=== PATIENT | male | born 1960 | race Caucasian/White ===

== ENCOUNTER 2019-05-10 09:19 | Outpatient (CLI) | payer BC, SELFPAY ==
[2019-05-10 10:35] LABS: Alanine Aminotransferase 32 U/L (16-63); Alkaline Phosphatase 57 U/L (46-116); Anion Gap 11.4 mmol/L (7-16); Aspartate Amino Transferase 24 U/L (15-37); Bilirubin,Total 0.5 mg/dL (0.00-1.00); Blood Urea Nitrogen 18 mg/dL (7-18); Calcium 8.9 mg/dL (8.5-10.1); Carbon Dioxide 29 mmol/L (21-32); Chloride 104 mmol/L (98-108); Cholesterol 149 mg/dL (0-200); Estimated Glomerular Filt Rate > 60; Glucose 102 mg/dL (70-99); HDL Direct 41 mg/dL (40-60); LDL Cholesterol Calculated 86 mg/dL (<130); Osmolality Calculated 291 mOsm/kg (285-295); Potassium 4.4 mmol/L (3.5-5.1); Sodium 140 mmol/L (136-145); Total Protein 7.3 g/dL (6.4-8.2); Triglycerides 109 mg/dL (0-150)
== END 2019-05-10 09:20 | disposition home or self-care (01) ==
LOC: CHSLAB 09:23
PROVIDERS: PCP Internal Medicine; Visit Provider Internal Medicine Cardiovascular Disease
DX: E78.5 Hyperlipidemia, unspecified (principal)
CPT/HCPCS: 36415; 80053; 80061

== ENCOUNTER 2019-06-26 14:39 | Outpatient (CLI) | payer BC, SELFPAY ==
--- NOTE | 2019-06-26 15:11 | ECG_ITS ---
Measurements Intervals [place] Rate: 57 P: 56 TN: 223 QRS: -54 QRSD: 155 T: 101 QT: 425 QTc: 415 Interpretive Statements SINUS BRADYCARDIA WITH FIRST DEGREE AV BLOCK VENTRICULAR PREMATURE COMPLEX LEFT AXIS DEVIATION LEFT BUNDLE BRANCH BLOCK ABNORMAL ECG Electronically Signed On 06-26-2019 16:53:13 CDT by Manuel Roger D.O.
--- NOTE | 2019-06-29 13:44 | WPDHOLTEREM ---
Holter/Event Monitor Holter/Event Monitor Date of procedure: 06/26/19 Procedure Type: 48 hour holter monitor Indications: Palpitations Conclusion: 1. 48 hour holter monitor on 06/26/19. 2. Predominant rhythm is sinus rhythm. HR range 46-108 bpm; average HR 64 bpm. 3. There are 368 premature supraventricular complexes and 7 supraventricular couplets. There is two episodes of atrial tachycardia, fastest at 128 bpm and longest lasting 16 beats. 4. There are 3,423 premature ventricular complexes, 14 ventricular couplets, 47 ventricular bigeminy, and 76 ventricular trigeminy. One idioventricular rhythm on average at 89 bpm lasting 5 beats. No ventricular tachycardia. 5. First degree AV block. Baseline left bundle branch block. No significant pauses greater than 2 seconds. 6. No symptoms available for correlation.
== END 2019-06-26 14:40 | disposition home or self-care (01) ==
PROVIDERS: PCP Internal Medicine; Visit Provider Internal Medicine Cardiovascular Disease
DX: R00.2 Palpitations (principal)
CPT/HCPCS: 93005; 93225; 93226

== ENCOUNTER 2019-08-07 09:44 | Outpatient (CLI) | payer BC, SELFPAY ==
--- NOTE | ~2019-08-07 | CT_ITS ---
EXAMINATION: CTA chest EXAM DATE: 08/07/2019 10:39 INDICATION: Aortic aneurysm without rupture follow-up. TECHNIQUE: Spiral CT of the chest following intravenous injection of 100 mL Omnipaque 350. Axial, co edith and sagittal images were reviewed. Coronal maximum intensity pixel images of chest reviewed. M aximum intensity projection 3-D reconstructions of the aorta were created by the technologist on [employer] workstation. The dose-length product (DLP) for this examination was 471.92 mGy-cm. The exposu re was tailored according to patient size (auto mA exposure control), and iterative reconstruction (A SIR) was used as additional dose reduction technique. Comparison is made to prior examination from . FINDINGS: The aortic root measures 5.3 cm as measured on image 54, unchanged. There is aortic valve r eplacement. The lungs are clear. There are no pleural or pericardial effusions. Tracheobronchial tree is patent. There is no mediastinal, hilar or axillary lymphadenopathy. There is no pneumotho rax. There is cardiomegaly. There is mild coronary arterial calcification, arterial sclerosis. Up per abdomen is unremarkable. There is thoracic spondylosis without osteoblastic or osteolytic lesio ns identified. IMPRESSION: 1. Aortic root, ascending aortic aneurysm unchanged. 2. Cardiomegaly. Reviewed, dictated and finalized at location A.
[2019-08-07 10:31] LABS: Estimated Glomerular Filt Rate > 60
== END 2019-08-07 09:45 | disposition home or self-care (01) ==
PROVIDERS: PCP Internal Medicine; Visit Provider Internal Medicine Cardiovascular Disease
DX: I71.2 Thoracic aortic aneurysm, without rupture (principal); I51.7 Cardiomegaly
CPT/HCPCS: 36415; 71275; Q9967

== ENCOUNTER 2020-04-23 10:51 | Outpatient (CLI) | payer BC, SELFPAY ==
[2020-04-23 11:23] LABS: Hematocrit 37.7 % (40.0-54.0); Hemoglobin 13.1 g/dL (14.0-18.0); Mean Corpuscular HGB Conc 34.7 g/dL (32.0-36.0); Mean Corpuscular Hemoglobin 29.8 pg (27.0-31.0); Mean Corpuscular Volume 85.7 fL (78.0-102.0); Mean Platelet Volume 10.8 fl (8.7-11.0); Platelet Count Result 162 K/mm3 (150-420); Red Cell Distribution Width 13.2 % (11.6-14.4); White Blood Count 3.3 K/mm3 (4.8-10.8)
[2020-04-23 11:24] LABS: Add Urine Microscopic? YES; Appearance Urine Clear (Clear); Bilirubin Urine Negative (Negative); Blood Urine 3+ (Negative); Color Urine Yellow (Yellow); Glucose Urine UA Negative (Negative); Ketones Urine Negative (Negative); Leukocyte Esterase Ur Negative LEU/UL (Negative); Nitrate Urine Negative (Negative); Protein Urine Trace (Negative); Specific Grav Ur 1.025 (1.010-1.020); Urobilinogen Urine 0.2 mg/dL (0.2-1.0); pH Urine 5.5 (5.0-8.0)
[2020-04-23 11:32] LABS: WBC Urine 0-3 /hpf (0-3)
[2020-04-23 11:33] LABS: Bacteria Urine Trace /hpf
[2020-04-23 11:35] LABS: Alanine Aminotransferase 21 U/L (16-63); Albumin Level 3.6 g/dL (3.4-5.0); Alkaline Phosphatase 58 U/L (46-116); Anion Gap 8 mmol/L (8-16); Aspartate Amino Transferase 24 U/L (15-37); Bilirubin,Total 0.6 mg/dL (0.00-1.00); Blood Urea Nitrogen 16 mg/dL (7-18); CRP 5.3 mg/dL (0.0-0.9); Calcium 8.3 mg/dL (8.5-10.1); Carbon Dioxide 26 mmol/L (21-32); Chloride 97 mmol/L (98-108); Estimated Glomerular Filt Rate 52; Glucose 110 mg/dL (70-99); Osmolality Calculated 274 mOsm/kg (285-295); Potassium 4.3 mmol/L (3.5-5.1); Sodium 131 mmol/L (136-145); Total Protein 7.3 g/dL (6.4-8.2)
[2020-04-23 11:43] LABS: SARS-CoV-2 Ag Negative (Negative)
[2020-04-23 11:46] LABS: Band Neutrophils Percent 1 % (0-6); Basophils Absolute Manual 0.06 K/mm3 (0-0.1); Basophils Percent Manual 2 % (0-1); Eosinophils Percent Manual 0 % (1-6); Lymphocytes Absolute Manual 0.66 K/mm3 (1.1-4.5); Lymphocytes Percent Manual 20 % (18-44); Monocytes Absolute Manual 0.52 K/mm3 (0.1-0.90); Monocytes Percent Manual 16 % (3-9); Neutrophils Absolute Manual 2.04 K/mm3 (1.3-6.7); Neutrophils Percent Manual 61 % (46-73); Platelet Estimate Adequate (Adequate); Total Cells Counted 100
[2020-04-24 17:28] LABS: SARS-CoV-2 RNA PCR Positive
== END 2020-04-23 10:52 | disposition home or self-care (01) ==
LOC: CHSLAB 10:53
PROVIDERS: PCP Internal Medicine; Visit Provider Internal Medicine
DX: U07.1 COVID-19 (principal); R52 Pain, unspecified; Z95.4 Presence of other heart-valve replacement
CPT/HCPCS: 36415; 80053; 81001; 85025; 86140; 87040; 87426; C9803; U0003; U0005

== ENCOUNTER 2020-04-26 08:00 | Outpatient (RCR) | payer BC, SELFPAY ==
[2020-04-26] MEDS: diphenhydrAMINE HCl CAP 25 MG CAPSULE PO (07:50)
[2020-04-26] MEDS: ACETAMINOPHEN 325 MG TABLET 650 MG PO (07:50)
[2020-04-26] MEDS: FAMOTIDINE 20 MG TABLET PO (07:50)
[2020-04-26 08:02] VITALS: BP 92/49; PULSE 56; RESP 16; TEMP 36.3; O2SAT 97
--- NOTE | 2020-04-26 08:24 | PC.NURSE ---
Patient given written instruction on covid antibody treatment and facts sheet on Covid 19 and Bamlinivimab with understanding stated.
[2020-04-26 09:28] VITALS: BP 104/48
--- NOTE | 2020-04-26 09:29 | PC.NURSE ---
Patient instructed to call primary physician about decreased blood pressure. Patient states he will monitor blood pressure at home also.
--- NOTE | 2020-04-29 10:30 | PC.NURSE ---
Patient states that he is feeling better, patient states he had no side effects from the Bamlanivimab.
== END 2020-04-29 11:25 ==
LOC: AMCINF 08:00
PROVIDERS: PCP Internal Medicine; Visit Provider Internal Medicine
DX: Z23 Encounter for immunization (principal); U07.1 COVID-19; Z95.2 Presence of prosthetic heart valve
CPT/HCPCS: A9270; J7050; M0239; Q0239

== ENCOUNTER 2020-05-03 08:17 | Outpatient (CLI) | payer BC, SELFPAY ==
[2020-05-03 08:47] LABS: SARS-CoV-2 Ag Negative (Negative)
== END 2020-05-03 08:18 | disposition home or self-care (01) ==
LOC: CHSLAB 08:19
PROVIDERS: PCP Internal Medicine; Visit Provider Internal Medicine
DX: U07.1 COVID-19 (principal)
CPT/HCPCS: 87426; C9803

== ENCOUNTER 2020-05-29 07:29 | Outpatient (CLI) | payer BC, SELFPAY ==
--- NOTE | 2020-05-29 07:35 | ECHO_ITS ---
Patient Info Name: Mauri Glover Age: 59 years : 1960 Gender: Male Ht: 67 in Wt: 205 lbs BSA: 2.13 m2 BP: 161 / 84 mmHg Technical Quality: Good Exam Date: 05/29/2020 8:08 AM Exam Location: [facility] Patient Status: Outpatient Admit Date: 05/29/2020 Staff Ordering Physician: Manuel Roger DO Channel Installer: Joaquim Nicole RDCS, RT Attending Provider: Manuel Roger DO Referring Physician: Kana MARTIN; Exam Type: CA echo doppler color flow Study Info Indications Z95.2 - Presence of prosthetic heart valve Complete two-dimensional, color flow and Doppler transthoracic echocardiogram is performed. Strain analysis performed. Summary 1. Complete two-dimensional, color flow and Doppler transthoracic echocardiogram is performed. 2. Left ventricular chamber dimension is moderately enlarged. 3. Left ventricular systolic function is moderately reduced, estimated at 35-40%. 4. There is moderately increased left ventricular wall thickness. 5. The left ventricular diastolic function is grade II diastolic dysfunction. 6. E/e' 8 is minimally elevated. 7. Global longitudinal strain is abnormal at -13.7%. 8. Left atrial chamber dimension is moderately enlarged. 9. Right atrial chamber dimension is mildly enlarged. 10. Apprentice Technician aortic valve. 11. The mitral valve has mildly thickened leaflets and mildly calcified annulus. 12. There is mild to moderate mitral valve regurgitation. Left Ventricle E/e' 8 is minimally elevated. Global longitudinal strain is abnormal at -13.7%. Left ventricular chamber dimension is moderately enlarged. Left ventricular systolic function is moderately reduced, estimated at 35-40%. There is moderately increased left ventricular wall thickness. The left ventricular diastolic function is grade II diastolic dysfunction. Right Ventricle Right ventricular chamber dimension is normal. Right ventricular systolic function is normal. Left Atria Left atrial chamber dimension is moderately enlarged. Right Atria Right atrial chamber dimension is mildly enlarged. Aortic Pin Game Machine Inspector aortic valve. There is no mechanical aortic valve stenosis. There is mild regurgitation of the mechanical aortic valve. Pulmonic Valve There is no pulmonic regurgitation. Mitral Valve The mitral valve has mildly thickened leaflets and mildly calcified annulus. There is no mitral valve stenosis. There is mild to moderate mitral valve regurgitation. Tricuspid Valve There is no tricuspid valve regurgitation. Pericardium/Pleural There is no pericardial effusion. Inferior Vena Cava Normal inferior vena cava with >50% collapse upon inspiration consistent with normal right atrial pressure, 5 mmHg. Aorta The aortic root size at the sinus of Valsalva is normal. Left Ventricular Outflow Tract Name Value Normal LVOT 2D LVOT Diameter 3.2 cm LVOT Doppler LVOT Peak Gradient 3 mmHg LVOT Mean Gradient 2 mmHg LVOT VTI 20 cm LVOT VTI/AV VTI Ratio 0.3 LVOT Stroke Volume
== END 2020-05-29 07:30 | disposition home or self-care (01) ==
PROVIDERS: PCP Internal Medicine; Visit Provider Internal Medicine Cardiovascular Disease
DX: Z95.2 Presence of prosthetic heart valve (principal)
CPT/HCPCS: 93306

== ENCOUNTER 2020-07-15 13:51 | Outpatient (CLI) | payer BC, SELFPAY ==
[2020-07-15 15:12] LABS: Cholesterol 144 mg/dL (0-200); HDL Direct 38 mg/dL (40-60); LDL Cholesterol Calculated 75 mg/dL (<130); Triglycerides 154 mg/dL (0-150)
== END 2020-07-15 13:52 | disposition home or self-care (01) ==
LOC: CHSLAB 13:53
PROVIDERS: PCP Internal Medicine; Visit Provider Internal Medicine Cardiovascular Disease
DX: E78.5 Hyperlipidemia, unspecified (principal)
CPT/HCPCS: 36415; 80061

== ENCOUNTER 2020-07-24 14:24 | Outpatient (CLI) | payer BC, SELFPAY ==
--- NOTE | ~2020-07-24 | CT_ITS ---
EXAMINATION: CTA chest DATE: 07/24/2020 15:37 CDT INDICATION: Follow-up thoracic aortic aneurysm TECHNIQUE: Computed tomographic angiography (CTA) of the chest was performed with 100 mL Omnipaque-35 0 intravenous contrast. The dose-length product was 577.37 mGy-cm. Maximum intensity projection 3D-re constructions of the aorta and other arteries were constructed by the technologist on a separate work station. Automated exposure control and iterative reconstruction technique were employed. COMPARISON: CT dated 08/07/2019. FINDINGS: There is persistent dilation of the aortic root measuring 5 cm. There are changes of aortic valve replacement. Cardiomegaly. No significant pleural or pericardial effusion. No thoracic lymphad enopathy. There are low lung volumes with crowding of the pulmonary vasculature and dependent atelect asis. No focal airspace consolidation. No suspicious pulmonary nodules or masses. There is gynecomast ia. There is a 1.5 cm left adrenal mass, statistically likely benign adenoma. Visualized bowel gas pa ttern is nonobstructive. Status post median sternotomy for CABG. Mild thoracic spondylosis. No lytic or blastic lesions. IMPRESSION: 1. Stable aortic root/ascending thoracic aortic aneurysm. 2: Cardiomegaly. Reviewed, dictated and finalized at location A.
[2020-07-24 15:01] LABS: Estimated Glomerular Filt Rate 57
== END 2020-07-24 14:25 | disposition home or self-care (01) ==
PROVIDERS: PCP Internal Medicine; Visit Provider Internal Medicine Cardiovascular Disease
DX: I71.2 Thoracic aortic aneurysm, without rupture (principal); I51.7 Cardiomegaly
CPT/HCPCS: 71275; Q9967

== ENCOUNTER 2021-06-04 13:25 | Outpatient (CLI) | payer OTHER, SELFPAY ==
--- NOTE | 2021-06-04 13:45 | ECHO_ITS ---
Patient Info Name: Mauri Glover Age: 60 years : 1960 Gender: Male Ht: 68 in Wt: 212 lbs BSA: 2.18 m2 HR: 61 bpm BP: 133 / 71 mmHg Heart Rhythm: Sinus Rhythm Technical Quality: Fair Exam Date: 06/04/2021 1:52 PM Exam Location: [facility] Patient Status: Outpatient Admit Date: 06/04/2021 Staff Ordering Physician: Manuel Roger DO Gritting Machine Operator: Luz Hamm RDCS Attending Provider: Manuel Roger DO Referring Physician: Kana MARTIN; Exam Type: CA echo doppler color flow Study Info Indications - Presence of prosthetic heart valve Complete two-dimensional, color flow and Doppler transthoracic echocardiogram is performed. Summary 1. Complete two-dimensional, color flow and Doppler transthoracic echocardiogram is performed. 2. Left ventricular chamber dimension is moderately enlarged. 3. Left ventricular systolic function is moderately reduced, estimated at 40-45%. 4. The left ventricular diastolic function is abnormal. 5. E/e' 10 is mildly elevated. 6. Left atrial chamber dimension is moderately enlarged. 7. The mechanical aortic valve is not well visualized. 8. There is trace mitral valve regurgitation. 9. There is no mechanical aortic valve stenosis. 10. There is no regurgitation of the mechanical aortic valve. 11. No pulmonary hypertension, estimated pulmonary arterial systolic pressure is 35 mmHg. Left Ventricle E/e' 10 is mildly elevated. Left ventricular chamber dimension is moderately enlarged. Left ventricular systolic function is moderately reduced, estimated at 40-45%. The left ventricular diastolic function is abnormal. Right Ventricle Right ventricular systolic function is normal and with normal TAPSE 2.3 cm. Right ventricular chamber dimension is normal. Left Atria Left atrial chamber dimension is moderately enlarged. Right Atria Right atrial chamber dimension is normal. Aortic Valve The mechanical aortic valve is not well visualized. There is no mechanical aortic valve stenosis. There is no regurgitation of the mechanical aortic valve. Pulmonic Valve There is no pulmonic regurgitation. Mitral Valve There is no mitral valve stenosis. There is trace mitral valve regurgitation. Tricuspid Valve There is no tricuspid valve regurgitation. No pulmonary hypertension, estimated pulmonary arterial systolic pressure is 35 mmHg. Pericardium/Pleural There is no pericardial effusion. Inferior Vena Cava Normal inferior vena cava with >50% collapse upon inspiration consistent with normal right atrial pressure, 5 mmHg. Aorta The aortic root size at the sinus of Valsalva is normal. Left Ventricular Outflow Tract Name Value Normal LVOT 2D LVOT Diameter 2.3 cm LVOT Doppler LVOT Peak Gradient 4 mmHg LVOT Mean Gradient 2 mmHg LVOT VTI 19 cm LVOT VTI/AV VTI Ratio 0.3 LVOT Stroke Volume 80 ml LVOT CO 4.4 l/min LVOT CI 2.0 l/min/m2
== END 2021-06-04 13:26 | disposition home or self-care (01) ==
LOC: ANHCARD 13:26
PROVIDERS: PCP Internal Medicine; Visit Provider Internal Medicine Cardiovascular Disease
DX: Z95.2 Presence of prosthetic heart valve (principal)
CPT/HCPCS: 93306

== ENCOUNTER 2021-07-09 15:07 | Outpatient (CLI) | payer OTHER, SELFPAY ==
[2021-07-09 16:31] LABS: Alanine Aminotransferase 49 U/L (16-63); Albumin Level 3.7 g/dL (3.4-5.0); Alkaline Phosphatase 62 U/L (46-116); Anion Gap 8 mmol/L (8-16); Aspartate Amino Transferase 31 U/L (15-37); Bilirubin,Total 0.6 mg/dL (0.00-1.00); Blood Urea Nitrogen 19 mg/dL (7-18); Calcium 8.8 mg/dL (8.5-10.1); Carbon Dioxide 27 mmol/L (21-32); Chloride 99 mmol/L (98-108); Cholesterol 142 mg/dL (0-200); Estimated Glomerular Filt Rate > 60; Glucose 88 mg/dL (70-99); HDL Direct 41 mg/dL (40-60); LDL Cholesterol Calculated 81 mg/dL (<130); Osmolality Calculated 279 mOsm/kg (285-295); Potassium 4.5 mmol/L (3.5-5.1); Sodium 134 mmol/L (136-145); Total Protein 6.6 g/dL (6.4-8.2); Triglycerides 102 mg/dL (0-150)
== END 2021-07-09 15:08 | disposition home or self-care (01) ==
LOC: CHSLAB 15:10
PROVIDERS: PCP Internal Medicine; Visit Provider Internal Medicine Cardiovascular Disease
DX: E78.5 Hyperlipidemia, unspecified (principal)
CPT/HCPCS: 36415; 80053; 80061

== ENCOUNTER 2021-08-25 09:22 | Outpatient (CLI) | payer OTHER, SELFPAY ==
--- NOTE | ~2021-08-25 | CT_ITS ---
EXAMINATION: CTA chest DATE: 08/25/2021 10:03 INDICATION: Aortic valve disease. TECHNIQUE: Computed tomographic angiography (CTA) of the chest was performed without and with 100 mL Omnipaque-300 intravenous contrast. Volume-rendered 3D-reconstructions of the aorta and large arterie s were constructed by the technologist on a separate workstation. Automated exposure control and iter ative reconstruction technique were employed. The dose-length product was 859.15 mGy-cm. COMPARISON: 07/24/2020 FINDINGS: Groundglass opacities in the left lower lobe with associated mild volume loss and would favor atelect asis over pulmonary edema or pneumonia. No pleural effusion. Moderate cardiomegaly. Atherosclerotic c oronary artery calcification. Postoperative change of prior median sternotomy and aortic valve repair . Aneurysm at the aortic root measuring up to 4.9 cm in maximal diameter with relatively well-defined circumferential high attenuation suggesting associated endoluminal stent grafting. The more distal a scending thoracic aorta, arch and descending thoracic aorta are normal in caliber with no dissection. Calcified right hilar lymph nodes consistent with old granulomatous disease. No pathologically enlar ged thoracic lymphadenopathy. Visualized upper abdomen is unremarkable. Multiple moderate thoracic sp ondylosis. IMPRESSION: 1. Unchanged aortic root aneurysm measuring up to 4.9 cm maximal diameter with postoperative change o f prior aortic valve repair and likely endoluminal stent graft of the aortic root. Reviewed, dictated and finalized at location B. IMPRESSION: 1. Unchanged aortic root aneurysm measuring up to 4.9 cm maximal diameter with postoperative change of prior aortic valve repair and likely endoluminal stent graft of the aortic root.
[2021-08-25 09:54] LABS: Estimated Glomerular Filt Rate > 60
== END 2021-08-25 09:23 | disposition home or self-care (01) ==
PROVIDERS: PCP Internal Medicine; Visit Provider Thoracic Surgery (Cardiothoracic Vascular Surgery)
DX: I35.9 Nonrheumatic aortic valve disorder, unspecified (principal)
CPT/HCPCS: 71275; Q9967

== ENCOUNTER 2022-04-10 13:14 | Outpatient (CLI) | payer OTHER, SELFPAY ==
--- NOTE | ~2022-04-10 | US_ITS ---
US scrotum doppler Epididymal cysts. TECHNIQUE: Testicular sonogram utilizing grayscale and color Doppler FINDINGS: The testes are normal in size and appearance. No focal lesions are seen. The right testes measures 5.3 x 3.7 x 2.4 cm centimeters, and the left testis measures 4.5 x 4.1 x 2.3 cm cm. Prominen t left rete testes. There is normal vascular flow to both testes. There are large bilateral hydroceles, loculated with septations bilaterally. No evidence for significant abnormality of the epididymis. No varicocele. IMPRESSION: 1. Large complicated bilateral hydroceles. Reviewed, dictated and finalized at location A. ER BABYSITTER
== END 2022-04-10 13:15 | disposition home or self-care (01) ==
PROVIDERS: PCP Internal Medicine; Visit Provider Urology
DX: N50.3 Cyst of epididymis (principal); N43.3 Hydrocele, unspecified
CPT/HCPCS: 76870; 93976

== ENCOUNTER 2022-07-01 07:59 | Outpatient (CLI) | payer OTHER, SELFPAY ==
--- NOTE | 2022-07-01 | ECHO_ITS ---
Patient Info Name: Mauri Glover Age: 61 years : 1960 Gender: Male Ht: 67 in Wt: 206 lbs BSA: 2.13 m2 HR: 47 bpm BP: 143 / 75 mmHg Technical Quality: Fair Exam Date: 07/01/2022 9:36 AM Exam Location: [facility] Patient Status: Outpatient Admit Date: 07/01/2022 Staff Ordering Physician: Olivia, Garrison Cha MD Wallpaper Printer Helper: Polly Higuera RDCS Attending Provider: Twan, Garrison Cha MD Referring Physician: Olivia FOSTER; Exam Type: CA echo doppler color flow Study Info Indications - AORTIC VALVE DISEASER S/P AVR Complete two-dimensional, color flow and Doppler transthoracic echocardiogram is performed. Summary 1. Complete two-dimensional, color flow and Doppler transthoracic echocardiogram is performed. 2. Left ventricular chamber dimension is severely enlarged. 3. Left ventricular systolic function is moderately reduced, estimated at 40-45%. 4. The left ventricular diastolic function is grade II diastolic dysfunction. 5. E/e' 8 is minimally elevated. 6. Global longitudinal strain is abnormal at -15.7%. 7. Left atrial chamber dimension is moderately enlarged. 8. Right atrial chamber dimension is mildly enlarged. 9. The mechanical aortic valve is not well visualized. 10. There is no mechanical aortic valve stenosis based on valve area and gradients. 11. Mild pulmonary hypertension, estimated pulmonary arterial systolic pressure is 46 mmHg. Left Ventricle E/e' 8 is minimally elevated. Global longitudinal strain is abnormal at -15.7%. Left ventricular chamber dimension is severely enlarged. Left ventricular systolic function is moderately reduced, estimated at 40-45%. The left ventricular diastolic function is grade II diastolic dysfunction. Right Ventricle Right ventricular chamber dimension is normal. Right ventricular systolic function is normal. Left Atria Left atrial chamber dimension is moderately enlarged. Right Atria Right atrial chamber dimension is mildly enlarged. Aortic Valve There is no mechanical aortic valve stenosis based on valve area and gradients. The mechanical aortic valve is not well visualized. There is no regurgitation of the mechanical aortic valve. Pulmonic Valve There is no pulmonic regurgitation. Mitral Valve There is no mitral valve stenosis. There is no mitral valve regurgitation. Tricuspid Valve There is no tricuspid valve regurgitation. Mild pulmonary hypertension, estimated pulmonary arterial systolic pressure is 46 mmHg. Pericardium/Pleural There is no pericardial effusion. Inferior Vena Cava Normal inferior vena cava with >50% collapse upon inspiration consistent with normal right atrial pressure, 5 mmHg. Aorta The aortic root size at the sinus of Valsalva is not well visualized. Left Ventricular Outflow Tract Name Value Normal LVOT 2D LVOT Diameter 2.3 cm LVOT Doppler LVOT Peak Gradient 7 mmHg LVOT Mean Gradient 4 mmHg LVOT VTI 32 cm LVOT VTI/AV VTI Ratio 0.5 LVOT Stroke Volume
--- NOTE | ~2022-07-01 | CT_ITS ---
EXAMINATION: CTA chest DATE: 07/01/2022 08:39 INDICATION: Aortic root aneurysm TECHNIQUE: Computed tomographic angiography (CTA) of the chest was performed without and with 100 mL Omnipque-350 intravenous contrast. Maximum intensity projection 3D-reconstructions of the aorta and o ther arteries were constructed by the technologist on a separate workstation. The dose-length product (DLP) was 945.13 mGy-cm. Automated exposure control and iterative reconstruction technique were empl oyed. COMPARISON: 08/25/2021 FINDINGS: There is a stable fusiform aneurysm at the aortic root measuring 4.9 cm in maximal dimensio n. No dissection is identified. Cardiomegaly is noted. There is calcified atherosclerosis of the aort a and coronary arteries. There are no pathologically enlarged thoracic lymph nodes. There is mild ate lectasis. There are trace pleural effusions. No pneumothorax is identified. There is moderate thoraci c spondylosis. IMPRESSION: 1. Stable fusiform aneurysm of the aortic root measuring up to 4.9 cm. Reviewed, dictated and finalized at location F.
[2022-07-01 08:30] LABS: Estimated Glomerular Filt Rate > 60
== END 2022-07-01 08:00 | disposition home or self-care (01) ==
PROVIDERS: PCP Internal Medicine; Visit Provider Thoracic Surgery (Cardiothoracic Vascular Surgery)
DX: I71.21 Aneurysm of the ascending aorta, without rupture (principal); I35.9 Nonrheumatic aortic valve disorder, unspecified; I27.20 Pulmonary hypertension, unspecified
CPT/HCPCS: 71275; 93306; Q9967

== ENCOUNTER 2022-07-20 16:07 | Outpatient (CLI) | payer OTHER, SELFPAY ==
[2022-07-20 16:54] LABS: Alanine Aminotransferase 24 U/L (16-63); Albumin Level 3.8 g/dL (3.4-5.0); Alkaline Phosphatase 63 U/L (46-116); Anion Gap 11 mmol/L (8-16); Aspartate Amino Transferase 23 U/L (15-37); Bilirubin,Total 0.6 mg/dL (0.00-1.00); Blood Urea Nitrogen 20 mg/dL (7-18); Calcium 8.6 mg/dL (8.5-10.1); Carbon Dioxide 25 mmol/L (21-32); Chloride 102 mmol/L (98-108); Cholesterol 155 mg/dL (0-200); Estimated Glomerular Filt Rate > 60; Glucose 86 mg/dL (70-99); HDL Direct 46 mg/dL (40-60); LDL Cholesterol Calculated 88 mg/dL (<130); Osmolality Calculated 287 mOsm/kg (285-295); Potassium 4.3 mmol/L (3.5-5.1); Sodium 138 mmol/L (136-145); Total Protein 6.8 g/dL (6.4-8.2); Triglycerides 103 mg/dL (0-150)
== END 2022-07-20 16:08 | disposition home or self-care (01) ==
LOC: CHSLAB 16:11
PROVIDERS: PCP Internal Medicine; Visit Provider Internal Medicine Cardiovascular Disease
DX: E78.5 Hyperlipidemia, unspecified (principal)
CPT/HCPCS: 36415; 80053; 80061

== ENCOUNTER 2023-03-24 09:27 | Outpatient (CLI) | payer OTHER, SELFPAY ==
--- NOTE | 2023-03-24 09:36 | ECG_ITS ---
Measurements Intervals [place] Rate: 62 P: [place]: 315 QRS: -39 QRSD: 154 T: 125 QT: 436 QTc: 446 Interpretive Statements SINUS RHYTHM WITH FIRST-DEGREE AV BLOCK BASELINE ARTIFACT MARKED LEFT AXIS DEVIATION [QRS AXIS < -30] INTRAVENTRICULAR CONDUCTION DELAY [130+ ms QRS DURATION] ABNORMAL ECG COMPARED TO ECG 06/26/2019 15:05:06 INTRAVENTRICULAR CONDUCTION DELAY NOW PRESENT Electronically Signed On 03-24-2023 15:54:08 EXCHANGE MECHANIC by Sergei Sampson M.D.
[2023-03-24 10:04] LABS: INR 1.9; Prothrombin Time 22.8 Seconds (11.1-14.7)
[2023-03-24 10:05] LABS: Partial Thromboplastin Time 59.2 SECONDS (22.3-36.8)
[2023-03-24 10:09] LABS: Anion Gap 5 mmol/L (8-16); Blood Urea Nitrogen 15 mg/dL (9-20); Calcium 8.9 mg/dL (8.4-10.2); Carbon Dioxide 28 mmol/L (22-30); Chloride 101 mmol/L (98-107); Estimated Glomerular Filt Rate > 60; Glucose 127 mg/dL (65-110); Potassium 4.7 mmol/L (3.4-5.0); Sodium 134 mmol/L (137-145)
== END 2023-03-24 09:28 | disposition home or self-care (01) ==
PROVIDERS: Anesthesiology; Visit Provider Urology
DX: I10 Essential (primary) hypertension (principal); Z79.01 Long term (current) use of anticoagulants; Z01.818 Encounter for other preprocedural examination
CPT/HCPCS: 36415; 80048; 85610; 85730; 93005

== ENCOUNTER 2023-03-30 02:48 | Day surgery (SDC) | payer OTHER, SELFPAY ==
[2023-03-22 15:32] VITALS: BMI 32.7
--- NOTE | 2023-03-22 15:50 | PC.NURSE ---
Report to the Outpatient Waiting Room, entrance under the green pavilion located off [facility], at 1000 on 03/30/23. Planned Procedure Time: 1200. Time changes happen often and if your time is changed the preop area will call you the afternoon before. - You and your visitor will be asked to self-screen and do not enter if you have any COVID symptoms. - A mask is optional within the hospital at this time. Patients may have clear liquids (water, carbonated beverages, clear teas, apple juice) until 3 hours prior to surgery with a maximum of 20 ounces. - No food from midnight until time of surgery Take the following medications with a SIP of water the morning of surgery: Carvedilol DO NOT STOP ANY OF YOUR OTHER PRESCRIPTION MEDICATIONS PRIOR TO SURGERY ?EXCEPT THE FOLLOWING Medications to discontinue per physician STOP WARFARIN ACCORDING TO DR. RAMOS' INSTRUCTIONS Date to take last dose PER DR. RAMOS Please no make-up, nail mohawk, hairspray, perfume, deodorant, or body powder the day of surgery. No jewelry (including any body piercings) or valuables the day of surgery, leave them at home. Please take a shower or bath the night before, or the morning of, surgery with an antibacterial soap. Wear comfortable, loose fitting clothing. - Jewelry must be removed prior to entering the operating room. Rings and piercings that are not removed may be cut off. - The hospital will not accept responsibility for valuables. - Please leave all valuables, including medications, at home the day of surgery. If you are going home after surgery, a licensed class b truck driver must drive you home. - NO public transportation without another adult if you receive anesthesia. - We recommend that an adult stay with you for 24 hours following discharge. - We also recommend that you do not drive, make important decision, drink alcoholic beverages, or take any drugs that were not prescribed by your health care provider for at least 24 hours after your discharge time. Follow any additional instructions given to you from your surgeon. If you or anyone in your household have experienced Covid symptoms in the past week, please notify your surgeon or the nurse liaison at the phone number below for possible testing. Telephone instructions given to patient and asked if any additional questions and then verbalized understanding. Patient advised to call surgeon office or pre surgery nurse liaison [phone] if any additional questions.
[2023-03-30] VITALS (10 sets, daily range): BP systolic 136–167; BP diastolic 61–88; PULSE 53–94; RESP 12–20; TEMP 36.1–36.6; O2SAT 96–99
--- NOTE | 2023-03-30 08:43 | P.PNAN_ITS ---
Anes - Initial Pre Proc Eval Procedure: Operation Date: 03/30/23 12:00 Proposed Procedures p Bilateral Hydrocelectomy with Orchiopexy - Singh Alex MD Date/Time: 03/30/23 08:43 Surgeon: Singh Alex MD Pre Op Diagnosis: bilat hydrocele, epididymal cyst Patient Data Age: 62 Gender: M Height: 1.7 m Weight: 94.8 kg Allergies Allergy/AdvReac Type Severity Reaction Status Date / Time No Known Allergies Allergy Mild Verified 03/30/23 10:32 Home Medications Medication Instructions Recorded Confirmed Type spironolactone 25 mg tablet See Rx Instructions .Route 06/22/22 03/22/23 Rx .COMPLEX #30 tabs simvastatin 40 mg tablet See Rx Instructions .Route 12/10/22 03/22/23 Rx .COMPLEX #30 tabs carvedilol 25 mg tablet See Rx Instructions .Route 12/18/22 03/22/23 Rx .COMPLEX #60 tabs lisinopril 40 mg tablet See Rx Instructions .Route 12/18/22 03/22/23 Rx .COMPLEX #30 tabs warfarin 5 mg tablet See Rx Instructions .Route 12/18/22 03/22/23 Rx .COMPLEX #60 tabs Patient hx anesthesia problems: none Family hx anesthesia problems: none Results Review: All pre-operative results and documents have been reviewed as part of the pre- operative evaluation. [facility] Past Medical History Medical History (Updated 03/30/23 @ 09:28 by German Holden DO) Chronic systolic heart failure EF 40-45% CKD (chronic kidney disease) stage 3, GFR 30-59 ml/min Dyslipidemia Essential hypertension Smoking Thoracic aortic aneurysm without rupture Surgical History Surgical History H/O mechanical aortic valve replacement Social History Social History Smoking packs per day: 0.5 Smoking cigarettes per day: 10.0 Years smoked: 35 Smoking pack-years: 17.50 Smoking status: Former smoker Tobacco type: cigarettes Smoking end date: 03/22/17 Alcohol intake: former Alcohol use details: 12 pack/day-quit 2018 Substance use: never Lack of Transportation: No Lack of Food: Never True Current Housing: I Have Housing Concerned About Future Housing: No Difficulty Paying Gas/Electric Bills: Decline to Answer Difficulty Paying for Meds: Decline to Answer Currently Unemployed: No Education: High School Diploma/GED Difficulty w/ Childcare or Family Care: No Living arrangements: with family Gender identity (if verbalized by the patient): Male Spiritual care concerns: No Anes - Eval Final PreProcedure Day of Procedure 03/30/23 08:43 Patient weight: obese Heart: regular rate and rhythm Lungs: clear to auscultation Airway: Mallampati scale class II Neurological: alert and oriented Last oral intake: >/= 8 hours ASA classification: IV Emergent: no Anesthetic plan: proceed Anesthesia type and monitoring: general LMA and standard monitoring Results Review: All pre-operative results and documents have been reviewed as part of the pre- operative evaluation. Informed Consent: The patient's anesthetic plan and its attendant risks and benefits were discussed with the patient/family/POA. Questions were solicited and answers provided to the satisfaction of the patient/family/POA.
[2023-03-30] MEDS: LACTATED RINGERS 1,000 ML 30 ML IV CONT ×2 (10:30→15:38)
[2023-03-30 10:47] LABS: Partial Thromboplastin Time 34.3 SECONDS (22.3-36.8)
--- NOTE | 2023-03-30 11:31 | WPDHPUPDATE1 ---
History and Physical Update Update Date/Time: 03/30/23 11:31 History and Physical has been reviewed, including an updated exam of the patient. There are NO changes in the patient's condition. Risks, benefits, and alternatives have been discussed and questions answered. Patient agrees to proceed with procedure. Proceed with bilateral hydrocelectomy and orchiopexy
[2023-03-30] MEDS: ceFAZolin 2 GM/D5W 50 ML 2 GM/50 ML BAG IVPB (12:08)
[2023-03-30] MEDS: LIDOCAINE HCL 1% LOCAL INJ 20 ML VIAL 10 ML INFILTRATE (12:37)
[2023-03-30] MEDS: NEOMYCIN/POLYMYXIN/BACITRACIN OINTMENT 15 GM TUBE 1 APPLIC TOPICAL (13:50)
--- NOTE | 2023-03-30 13:58 | P.OP_ITS ---
Procedure Note - Detailed Date of Procedure 03/30/23 Pre-op Diagnosis bilat hydrocele, bilateral complicated epididymal cysts Post-op Diagnosis Same Procedure Performed Scrotal exploration, bilateral hydrocelectomy, bilateral spermatocelectomy, bilateral orchiopexy. Surgeon Singh Alex MD Anesthesia General Description of Procedure Patient is taken the operative suite correctly identified. Once anesthesia was obtained he was prepped and draped usual sterile fashion. A midline scrotal incision was made. The left tunica was incised. The entire contents were then brought out to the operative field. The hydrocele sac was opened and drained. The excess tissue was then sent for analysis. Patient had quite an extensive amount of epididymal cysts on the left side. We were able to trace this down to its origin and ligated. This is sent for analysis. Quarter-inch [place] drain was then placed through a separate stab incision. The left testicle was then orchiopexy using Ethibond in a three-point fixture. A similar procedure was then done on the right side. The right side was also orchiopexy and after the hydrocele spermatoceles were excised. A quarter-inch [place] drain was also placed on the right. The tunica was closed in a running fashion using 3-0 chromic. Skin was then closed using 3-0 chromic in a running fashion. Incisions were anesthetized using Marcaine. Patient tolerated procedure well without any complication was taken recovery stable condition. He will remove the [place] drains on Wednesday if minimal drainage. Follow-up with physician in 3-4 weeks time. Call for appointment. This completes dictation. Please send a copy of this op note to my office. Estimated Blood Loss 25 Drains Yes Packing No Pathology Yes Complications No immediate complications Condition Stable Disposition PACU
[2023-03-30] MEDS: fentaNYL CITRATE INJ (*CRX) 100 MCG/2 ML VIAL 25 MCG IV PUSH ×8 (14:18→15:38)
[2023-03-30] MEDS: oxyCODONE HCL (*CRX) 5 MG TAB IR PO (15:40)
--- NOTE | 2023-03-30 16:14 | SUR.PHASEII ---
DR. RAMOS CALLED RE: DRAINAGE; INSTRUCTED TO CHANGE BLOODY DRESSINGS/SCROTAL SUPPORT WHICH I DID. DR. RAMOS INSTRUCTED FOR PATIENT TO RESUME COUMADIN ON WEDNESDAY; NO SEX UNTIL CLEARED BY SURGEON. PATIENT CAN APPLY ANTIBIOTIC OINTMENT ONCE/DAY TO INCISIONS.
== END 2023-03-30 16:31 | disposition home or self-care (01) ==
PROVIDERS: Anesthesiology; PCP Internal Medicine; Visit Provider Urology
PROC: (CPT 55040; principal; 2023-03-30 12:00)
DX: N43.3 Hydrocele, unspecified (principal); N43.40 Spermatocele of epididymis, unspecified; I13.0 Hypertensive heart and chronic kidney disease with heart failure and stage 1 through stage 4 chronic kidney disease, or unspecified chronic kidney disease; N18.30 Chronic kidney disease, stage 3 unspecified; I50.22 Chronic systolic (congestive) heart failure; E78.5 Hyperlipidemia, unspecified; I71.20 Thoracic aortic aneurysm, without rupture, unspecified; Z87.891 Personal history of nicotine dependence; Z95.4 Presence of other heart-valve replacement; Z79.01 Long term (current) use of anticoagulants; Z79.899 Other long term (current) drug therapy
CPT/HCPCS: 55041; 54840; 54640; 36415; 80048; 85610; 85730; 88302; 88304; 93005; A9270; J0690; J1100; J1170; J2250; J2405; J2704; J3010; J7120

== ENCOUNTER 2023-05-28 09:49 | Outpatient (CLI) | payer OTHER, SELFPAY ==
--- NOTE | ~2023-05-28 | XR_ITS ---
Clinical Indication: Cough PA and lateral views of the chest: Comparison: 06/08/2007 Findings: The lungs are clear, without evidence of focal consolidation or pleural effusion. Cardiome diastinal silhouette is stable. Bones and soft tissues are unremarkable. Impression: Clear lungs. Reviewed, dictated and finalized at location . TARY AIDE Impression: Clear lungs.
[2023-05-28 10:59] LABS: Basophils Absolute Auto 0.03 K/mm3 (0.00-0.10); Basophils Percent Auto 0.2 % (0.0-1.0); Eosinophils Absolute Auto 0.17 K/mm3 (0.02-0.50); Eosinophils Percent Auto 1.3 % (1.0-6.0); Hematocrit 39.7 % (40.0-54.0); Immature Granulocyte Absolute 0.08 K/mm3 (0.00-0.00); Immature Granulocyte Percent A 0.6 % (0.0-0.0); Lymphocytes Absolute Auto 0.69 K/mm3 (1.10-4.50); Lymphocytes Percent Auto 5.2 % (18.0-42.0); Mean Corpuscular HGB Conc 32.7 g/dL (32.0-36.0); Mean Corpuscular Hemoglobin 28.6 pg (27.0-31.0); Mean Corpuscular Volume 87.3 fL (78.0-102.0); Mean Platelet Volume 10.5 fl (8.7-11.0); Monocytes Absolute Auto 1.49 K/mm3 (0.10-0.90); Monocytes Percent Auto 11.3 % (2.0-11.0); Neutrophils Absolute Auto 10.7 K/mm3 (1.7-7.2); Neutrophils Percent Auto 81.4 % (50.0-70.0); Platelet Count Result 239 K/mm3 (150-420); Red Blood Count 4.55 M/mm3 (4.70-6.10); Red Cell Distribution Width 13.2 % (11.6-14.4); White Blood Count 13.2 K/mm3 (4.8-10.8)
[2023-05-28 11:08] LABS: INR 1.1; Prothrombin Time 14.5 Seconds (9.64-11.0)
[2023-05-28 11:12] LABS: Appearance Urine Clear (Clear); Bilirubin Urine 1+ (Negative); Blood Urine 3+ (Negative); Color Urine Yellow (Yellow); Glucose Urine UA Negative (Negative); Ketones Urine Trace (Negative); Leukocyte Esterase Ur Negative (Negative); Nitrate Urine Negative (Negative); Protein Urine 2+ (Negative); Specific Grav Ur 1.025 (1.010-1.020)
[2023-05-28 11:18] LABS: Alanine Aminotransferase 28 U/L (16-63); Albumin Level 3.4 g/dL (3.4-5.0); Alkaline Phosphatase 65 U/L (46-116); Anion Gap 10 mmol/L (8-16); Aspartate Amino Transferase 22 U/L (15-37); Bilirubin,Total 0.9 mg/dL (0.00-1.00); Blood Urea Nitrogen 20 mg/dL (7-18); Calcium 8.5 mg/dL (8.5-10.1); Carbon Dioxide 28 mmol/L (21-32); Chloride 98 mmol/L (98-108); Estimated Glomerular Filt Rate > 60; Glucose 127 mg/dL (70-99); Osmolality Calculated 286 mOsm/kg (285-295); Potassium 4.3 mmol/L (3.5-5.1); Sodium 136 mmol/L (136-145); Total Protein 6.9 g/dL (6.4-8.2)
[2023-05-28 11:24] LABS: Add Urine Microscopic? YES; Bacteria Urine 1+ /hpf; Squamous Epithelial Cell Urine Rare /hpf (Few); WBC Urine None seen /hpf (0-3)
[2023-05-28 12:28] LABS: NT Pro B Type Natriuretic Pept 3049 pg/mL (0-125); Troponin I 35.9 ng/L (0.00-60.4)
[2023-05-29 10:05] LABS: CRP > 25.0 mg/dL (0.0-0.9)
== END 2023-05-28 09:50 | disposition home or self-care (01) ==
LOC: CHSLAB 09:50
PROVIDERS: PCP Internal Medicine; Visit Provider Internal Medicine
DX: J18.8 Other pneumonia, unspecified organism (principal); R07.9 Chest pain, unspecified; R06.00 Dyspnea, unspecified
CPT/HCPCS: 36415; 71046; 80053; 81001; 83880; 84484; 85025; 85610; 86140

== ENCOUNTER 2023-06-03 12:05 | Outpatient (CLI) | payer OTHER, SELFPAY ==
--- NOTE | ~2023-06-03 | XR_ITS ---
Clinical Indication: Dyspnea PA and lateral views of the chest: Comparison: 05/28/2023 Findings: The lungs are clear, without evidence of focal consolidation or pleural effusion. Cardiome diastinal silhouette is stable. Bones and soft tissues are unremarkable. Impression: Clear lungs. Reviewed, dictated and finalized at [facility]. TH AND SAFETY SPECIALIST Impression: Clear lungs.
[2023-06-03 12:22] LABS: Hematocrit 40.2 % (40.0-54.0); Hemoglobin 13.6 g/dL (14.0-18.0); Mean Corpuscular HGB Conc 33.8 g/dL (32.0-36.0); Mean Corpuscular Volume 85.7 fL (78.0-102.0); Mean Platelet Volume 9.7 fl (8.7-11.0); Platelet Count Result 333 K/mm3 (150-420); Red Blood Count 4.69 M/mm3 (4.70-6.10); Red Cell Distribution Width 13.2 % (11.6-14.4); White Blood Count 17.2 K/mm3 (4.8-10.8)
[2023-06-03 12:35] LABS: D Dimer 0.27 mg/L (0.19-0.50)
[2023-06-03 12:44] LABS: Band Neutrophils Percent 1 % (0-6); Lymphocytes Absolute Manual 1.54 K/mm3 (1.1-4.5); Lymphocytes Percent Manual 9 % (18-44); Monocytes Absolute Manual 0.68 K/mm3 (0.1-0.90); Monocytes Percent Manual 4 % (3-9); Neutrophils Absolute Manual 14.96 K/mm3 (1.3-6.7); Neutrophils Percent Manual 86 % (46-73); Total Cells Counted 100
[2023-06-03 12:45] LABS: Platelet Estimate Adequate (Adequate)
[2023-06-03 12:46] LABS: Alanine Aminotransferase 35 U/L (16-63); Alkaline Phosphatase 59 U/L (46-116); Anion Gap 8 mmol/L (8-16); Aspartate Amino Transferase 12 U/L (15-37); Bilirubin,Total 0.6 mg/dL (0.00-1.00); Blood Urea Nitrogen 22 mg/dL (7-18); CRP 0.8 mg/dL (0.0-0.9); Calcium 8.5 mg/dL (8.5-10.1); Carbon Dioxide 28 mmol/L (21-32); Chloride 98 mmol/L (98-108); Estimated Glomerular Filt Rate > 60; Glucose 144 mg/dL (70-99); NT Pro B Type Natriuretic Pept 2587 pg/mL (0-125); Osmolality Calculated 284 mOsm/kg (285-295); Potassium 4.4 mmol/L (3.5-5.1); Sodium 134 mmol/L (136-145); Total Protein 6.5 g/dL (6.4-8.2)
== END 2023-06-03 12:06 | disposition home or self-care (01) ==
LOC: CHSLAB 12:07
PROVIDERS: PCP Internal Medicine; Visit Provider Internal Medicine
DX: R06.00 Dyspnea, unspecified (principal)
CPT/HCPCS: 36415; 71046; 80053; 83880; 85025; 85380; 86140

== ENCOUNTER 2023-06-07 07:57 | Outpatient (CLI) | payer OTHER, SELFPAY ==
[2023-06-07 08:09] LABS: Basophils Absolute Auto 0.04 K/mm3 (0.00-0.10); Basophils Percent Auto 0.5 % (0.0-1.0); Eosinophils Absolute Auto 0.19 K/mm3 (0.02-0.50); Eosinophils Percent Auto 2.3 % (1.0-6.0); Hemoglobin 13.4 g/dL (14.0-18.0); Immature Granulocyte Percent A 1.2 % (0.0-0.0); Lymphocytes Absolute Auto 1.47 K/mm3 (1.10-4.50); Lymphocytes Percent Auto 17.5 % (18.0-42.0); Mean Corpuscular HGB Conc 32.7 g/dL (32.0-36.0); Mean Corpuscular Hemoglobin 29.1 pg (27.0-31.0); Mean Corpuscular Volume 88.9 fL (78.0-102.0); Mean Platelet Volume 9.4 fl (8.7-11.0); Monocytes Absolute Auto 0.86 K/mm3 (0.10-0.90); Monocytes Percent Auto 10.2 % (2.0-11.0); Neutrophils Absolute Auto 5.7 K/mm3 (1.7-7.2); Neutrophils Percent Auto 68.3 % (50.0-70.0); Platelet Count Result 216 K/mm3 (150-420); Red Blood Count 4.61 M/mm3 (4.70-6.10); Red Cell Distribution Width 13.4 % (11.6-14.4); White Blood Count 8.4 K/mm3 (4.8-10.8)
[2023-06-07 08:38] LABS: INR 8.1
[2023-06-07 10:41] LABS: Alanine Aminotransferase 33 U/L (16-63); Albumin Level 2.9 g/dL (3.4-5.0); Alkaline Phosphatase 52 U/L (46-116); Anion Gap 6 mmol/L (8-16); Aspartate Amino Transferase 21 U/L (15-37); Bilirubin,Total 0.6 mg/dL (0.00-1.00); Blood Urea Nitrogen 18 mg/dL (7-18); Calcium 7.8 mg/dL (8.5-10.1); Carbon Dioxide 32 mmol/L (21-32); Chloride 99 mmol/L (98-108); Estimated Glomerular Filt Rate > 60; Glucose 119 mg/dL (70-99); NT Pro B Type Natriuretic Pept 1456 pg/mL (0-125); Osmolality Calculated 286 mOsm/kg (285-295); Potassium 3.9 mmol/L (3.5-5.1); Sodium 137 mmol/L (136-145); Total Protein 5.7 g/dL (6.4-8.2)
== END 2023-06-07 07:58 | disposition home or self-care (01) ==
LOC: CHSLAB 07:59
PROVIDERS: PCP Internal Medicine; Visit Provider Internal Medicine
DX: R05.8 Other specified cough (principal)
CPT/HCPCS: 36415; 80053; 83880; 85025; 85610

== ENCOUNTER 2023-06-24 15:16 | Outpatient (CLI) | payer OTHER, SELFPAY ==
--- NOTE | ~2023-06-24 | US_ITS ---
EXAMINATION: US venous doppler [facility] DATE: 06/24/2023 16:38 INDICATION: Bilateral lower limb swelling TECHNIQUE: Brunner scale images without and with compression and Doppler images of the bilateral lower e xtremity veins were obtained. COMPARISON: None FINDINGS: The right common femoral vein, profunda femoral vein, femoral vein, popliteal vein, peroneal trunk, p osterior tibial veins, and greater saphenous vein are patent. The left common femoral vein, profunda femoral vein, femoral vein, popliteal vein, peroneal trunk, po sterior tibial veins, and greater saphenous vein are patent. IMPRESSION: 1. Patent bilateral lower extremity veins. No evidence of deep venous thrombosis. Reviewed, dictated and finalized at location F. IMPRESSION: 1. Patent bilateral lower extremity veins. No evidence of deep venous thrombosi s.
== END 2023-06-24 15:17 | disposition home or self-care (01) ==
LOC: ANHIMG 15:21
PROVIDERS: PCP Internal Medicine; Visit Provider Internal Medicine Cardiovascular Disease
DX: R60.0 Localized edema (principal)
CPT/HCPCS: 93970

== ENCOUNTER 2023-08-23 08:07 | Outpatient (CLI) | payer OTHER, SELFPAY ==
--- NOTE | ~2023-08-23 | CT_ITS ---
EXAMINATION: CTA chest DATE: 08/23/2023 09:07 INDICATION: Aortic aneurysm without rupture. TECHNIQUE: Computed tomographic angiography (CTA) of the chest was performed without and with 100 mL Omnipaque-350 intravenous contrast. Automated exposure control and iterative reconstruction technique were employed. The dose-length product was 1075.67 mGy-cm. Maximum intensity projection 3D-reconstru ctions of the aorta and other arteries were constructed by the technologist on a separate workstation . COMPARISON: Chest CT 07/01/2022 FINDINGS: The lungs demonstrate mild atelectasis. Again seen are groundglass opacities and septal thi ckening in the lower lobes, likely mild pulmonary edema. No pleural effusion. Cardiomegaly is noted. There are coronary artery calcifications. There are changes of aortic valve replacement. The aorta me asures 5.1 cm at the sinuses of Valsalva, 4.3 cm at the sinotubular junction, 4.1 cm in the mid ascen ding aorta, 3.0 cm at the aortic isthmus, and 3.1 cm in the mid descending aorta. Calcified right hil ar lymph nodes are consistent with old granulomatous disease. There is mild bilateral gynecomastia. T here is mild thoracic spondylosis. IMPRESSION: 1. 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 2. Mild pulmonary edema. Reviewed, dictated and finalized at location A. IMPRESSION: 1. 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 2. Mild pulmonary edema.
== END 2023-08-23 08:08 | disposition home or self-care (01) ==
LOC: ANHIMG 08:09
PROVIDERS: PCP Internal Medicine; Visit Provider Thoracic Surgery (Cardiothoracic Vascular Surgery)
DX: I71.9 Aortic aneurysm of unspecified site, without rupture (principal); J81.1 Chronic pulmonary edema
CPT/HCPCS: 71275; Q9967

== ENCOUNTER 2023-08-23 08:14 | Outpatient (CLI) | payer OTHER, SELFPAY ==
--- NOTE | 2023-08-23 | ECHO_ITS ---
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 Summary 1. Complete two-dimensional, color flow and Doppler transthoracic echocardiogram is performed. 2. Left ventricular chamber dimension is moderately enlarged. 3. Left ventricular systolic function is moderately reduced, estimated at 40-45%. 4. There is mild concentric increased left ventricular wall thickness. 5. The left ventricular diastolic function is abnormal. 6. E/e' 13 is mildly elevated. 7. Left atrial chamber dimension is severely enlarged. 8. Mechanical aortic valve. 9. There is trace regurgitation of the mechanical aortic valve. 10. There is mild to moderate mitral valve regurgitation. 11. There is mild tricuspid valve regurgitation. 12. No pulmonary hypertension, estimated pulmonary arterial systolic pressure is 22 mmHg. 13. There is mild pulmonic regurgitation. Left Ventricle E/e' 13 is mildly elevated. Left ventricular chamber dimension is moderately enlarged. Left ventricular systolic function is moderately reduced, estimated at 40-45%. There is mild concentric increased left ventricular wall thickness. The left ventricular diastolic function is abnormal. Right Ventricle Right ventricular chamber dimension is normal. Right ventricular systolic function is normal. Left Atria Left atrial chamber dimension is severely enlarged. Right Atria Right atrial chamber dimension is normal. Aortic Valve Mechanical aortic valve. The mechanical aortic valve is not well visualized. There is no mechanical aortic valve stenosis. There is trace regurgitation of the mechanical aortic valve. Pulmonic Valve There is mild pulmonic regurgitation. Mitral Valve There is no mitral valve stenosis. There is mild to moderate mitral valve regurgitation. Tricuspid Valve There is mild tricuspid valve regurgitation. No pulmonary hypertension, estimated pulmonary arterial systolic pressure is 22 mmHg. Pericardium/Pleural There is no pericardial effusion. Inferior Vena Cava Normal inferior vena cava with >50% collapse upon inspiration consistent with normal right atrial pressure, 5 mmHg. Aorta The aortic root size at the sinus of Valsalva is normal. Left Ventricular Outflow Tract Name Value Normal LVOT 2D LVOT Diameter 2.0 cm LVOT Doppler LVOT Peak Gradient 3 mmHg LVOT Mean Gradient 1 mmHg LVOT VTI 26 cm LVOT VTI/AV VTI Ratio 0.4 LVOT Stroke Volume 79 ml LVOT CO 3.2 l/min
[2023-08-23 08:51] LABS: Estimated Glomerular Filt Rate > 60
== END 2023-08-23 08:15 | disposition home or self-care (01) ==
LOC: ANHCARD 08:16
PROVIDERS: PCP Internal Medicine; Visit Provider Thoracic Surgery (Cardiothoracic Vascular Surgery)
DX: I71.20 Thoracic aortic aneurysm, without rupture, unspecified (principal); I08.1 Rheumatic disorders of both mitral and tricuspid valves; R93.1 Abnormal findings on diagnostic imaging of heart and coronary circulation
CPT/HCPCS: 93306

== ENCOUNTER 2023-09-06 10:08 | Outpatient (CLI) | payer OTHER, SELFPAY ==
[2023-09-06 10:41] LABS: Amphetamine Screen Urine Negative (Negative); Barbiturate Screen Urine Negative (Negative); Benzodiazepines Screen Urine Negative (Negative); Cannabinoid Screen Urine Negative (Negative); Cocaine Screen Urine Negative (Negative); Methadone Screen Urine Negative (Negative); Opiate Screen Urine Negative (Negative); Phencyclidine Screen Urine Negative (Negative)
[2023-09-06 11:26] LABS: Ethanol < 3 mg/dL (0-6)
== END 2023-09-06 10:09 | disposition home or self-care (01) ==
LOC: CHSLAB 10:09
PROVIDERS: PCP Internal Medicine; Visit Provider Internal Medicine
DX: Z04.89 Encounter for examination and observation for other specified reasons (principal)
CPT/HCPCS: 36415; 80307

== ENCOUNTER 2024-03-24 07:39 | Outpatient (CLI) | payer OTHER, SELFPAY ==
[2024-03-24 08:33] LABS: Alanine Aminotransferase 26 U/L (16-63); Albumin Level 3.7 g/dL (3.4-5.0); Alkaline Phosphatase 74 U/L (46-116); Anion Gap 5 mmol/L (4-12); Aspartate Amino Transferase 19 U/L (15-37); Bilirubin,Total 0.7 mg/dL (0.00-1.00); Blood Urea Nitrogen 21 mg/dL (7-18); Calcium 8.9 mg/dL (8.5-10.1); Carbon Dioxide 30 mmol/L (21-32); Chloride 102 mmol/L (98-108); Cholesterol 145 mg/dL (0-200); Estimated Glomerular Filt Rate 57; Glucose 141 mg/dL (70-99); HDL Direct 45 mg/dL (40-60); LDL Cholesterol Calculated 76 mg/dL (<130); Osmolality Calculated 289 mOsm/kg (285-295); Potassium 4.4 mmol/L (3.5-5.1); Sodium 137 mmol/L (136-145); Total Protein 6.6 g/dL (6.4-8.2); Triglycerides 118 mg/dL (0-150)
== END 2024-03-24 07:40 | disposition home or self-care (01) ==
PROVIDERS: PCP Internal Medicine; Visit Provider Internal Medicine Cardiovascular Disease
DX: E78.5 Hyperlipidemia, unspecified (principal)
CPT/HCPCS: 36415; 80053; 80061

== ENCOUNTER 2024-08-21 08:32 | Outpatient (CLI) | payer BC, SELFPAY ==
--- NOTE | 2024-08-21 | ECHO_ITS ---
Patient Info Name: Mauri Glover Age: 63 years : 1960 Gender: Male Ht: 68 in Wt: 209 lbs BSA: 2.16 m2 HR: 52 bpm BP: 158 / 83 mmHg Technical Quality: Fair Exam Date: 08/21/2024 10:07 AM Patient Status: O Admit Date: 08/21/2024 Exam Type: CA echo dop color flow w con Complete two-dimensional, color flow and Doppler transthoracic echocardiogram is performed with contrast to opacify the left ventricle and to improve the deliniation of the left ventricle endocardial borders. Staff Referring Physician: Garrison Baker Promotional Marketing Analyst: Valeri Mendoza Attending Provider: Garrison Baker Contrast/Agitated Saline Contrast/Ag. Saline: Definity Amount: 3.00 ml Administered By: Valeri Mendoza Existing IV Access: Yes Site Condition: IV removed, Site dressing applied and No extravasation Summary 1. Left ventricular chamber dimension is moderately enlarged. 2. Left ventricular systolic function is mildly reduced, estimated at 45-50. 3. There is mild concentric increased left ventricular wall thickness. 4. The left ventricular diastolic function is normal. 5. Definity contrast administered improved wall motion interpretation. 6. E/e' 8 is minimally elevated. 7. Left atrial chamber dimension is moderately enlarged. 8. Right atrial chamber dimension is mildly enlarged. 9. The mechanical aortic valve is not well visualized. 10. There is mild sclerosis of the mechanical aortic valve leaflets. 11. There is no mechanical aortic valve stenosis. No turbulent flow through aortic valve. 12. There is trace regurgitation of the mechanical aortic valve. 13. There is mild to moderate mitral valve regurgitation. 14. No pulmonary hypertension, estimated pulmonary arterial systolic pressure is 19 mmHg. Left Ventricle E/e' 8 is minimally elevated. Left ventricular chamber dimension is moderately enlarged. Left ventricular systolic function is mildly reduced, estimated at 45-50. There is mild concentric increased left ventricular wall thickness. The left ventricular diastolic function is normal. Definity contrast administered improved wall motion interpretation. Right Ventricle Right ventricular chamber dimension is normal. Right ventricular systolic function is normal and with normal TAPSE 2.2 cm. Left Atria Left atrial chamber dimension is moderately enlarged. Right Atria Right atrial chamber dimension is mildly enlarged. Aortic Valve The mechanical aortic valve is not well visualized. There is mild sclerosis of the mechanical aortic valve leaflets. There is no mechanical aortic valve stenosis. No turbulent flow through aortic valve. There is trace regurgitation of the mechanical aortic valve. Mechanical aortic valve. Pulmonic Valve There is no pulmonic regurgitation. Mitral Valve There is no mitral valve stenosis. There is mild to moderate mitral valve regurgitation. Tricuspid Valve There is no tricuspid valve regurgitation. No pulmonary hypertension, estimated pulmonary arterial systolic pressure is 19 mmHg. Pericardium/Pleural There is no pericardial effusion. Inferior Vena Cava Normal inferior vena cava with >50% collapse upon inspiration consistent with normal right atrial pressure, 5 mmHg. Aorta The aortic root size at the sinus of Valsalva is normal. Left Ventricular Outflow Tract Name Value Normal LVOT 2D LVOT Diameter 2.0 cm LVOT Doppler LVOT Peak Velocity 73 cm/s LVOT Peak Gradient 2 mmHg LVOT Mean Gradient 1 mmHg LVOT VTI 18 cm LVOT VTI/AV VTI Ratio 0.3 LVOT Stroke Volume 55 ml LVOT CO 2.4 l/min LVOT CI 1.1 l/min/m2 Pulmonic Valve Name Value Normal RVOT Doppler RVOT Peak Velocity 62 cm/s RVOT Peak Gradient 2 mmHg PV Doppler PV Peak Velocity 114 cm/s PV Peak Gradient 5 mmHg Mitral Valve Name Value Normal MV Regurgitation Doppler MR Peak Gradient 108 mmHg MV Diastolic Function MV E Peak Velocity 89 cm/s MV A Peak Velocity 65 cm/s MV E/A 1.4 MV Decel Time (PW) 180 ms Tricuspid Valve Name Value Normal TV Regurgitation Doppler TR Peak Velocity 190 cm/s TR Peak Gradient 14 mmHg Estimated PAP/RSVP RA Pressure 5 mmHg <=5 PA Systolic Pressure 19 mmHg <36 RV Systolic Pressure 19 mmHg <36 TV Annular TDI TV Lateral Natalia s' Velocity 8.7 cm/s >=9.5 Aorta Name Value Normal Ascending Aorta Ao Root Diameter (MM) 3.5 cm Ao Root Diam Index (MM) 1.6 cm/m2 Aortic Valve Name Value Normal AV Doppler AV Peak Velocity 264 cm/s AV Peak Gradient 25 mmHg AV Mean Gradient 14 mmHg AV VTI 60 cm AV Area (Cont Eq VTI) 0.9 cm2 >=3.0 AV Area (Cont Eq Oz) 0.8 cm2 AV DI (Oz) 0.28 AV Regurgitation 2D LVOT Area 3.0 cm2 Ventricles Name Value Normal LV Dimensions 2D/MM IVS Diastolic Thickness (2D) 1.5 cm 0.6-1.0 IVS Diastole Thickness (MM) 0.9 cm 0.6-1.0 LVID Diastole (2D) 6.2 cm 4.2-5.8 LVID Diastole (MM) 7.4 cm 4.2-5.8 LVIW Diastolic Thickness (2D) 1.8 cm 0.6-1.0 LVIW Diastolic Thickness (MM) 0.7 cm 0.6-1.0 LVID Systole (2D) 4.4 cm 2.5-4.0 LVID Systole (MM) 5.7 cm 2.5-4.0 LVOT Diameter 2.0 cm LV Mass (2D Cubed) 518.54 g 88.00-224.00 LV Mass Index (2D Cubed) 240 g/m2 49-115 Relative Wall Thickness (2D) 0.59 <=0.42 LV Mass (MM Cubed) 273.53 g 88.00-224.00 LV Mass Index (MM Cubed) 126 g/m2 49-115 Relative Wall Thickness (MM) 0.19 LV Fractional Shortening/Ejection Fraction 2D/MM LV Fractional Shortening (2D) 28 % 25-43 LV Fractional Shortening (MM) 23 % 25-43 LV EF (MM Teichholz) 45 % LV EF (2D Teichholz) 53 % LV Diastolic Volume (4C MOD) 278 ml LV EF (4C MOD) 49 % LV Diastolic Volume (2C MOD) 206 ml LV EF (2C MOD) 58 % LV Diastolic Volume (BP MOD) 238 ml 62-150 LV Diastolic Volume Index (BP MOD) 110 ml/m2 34-74 LV Systolic Volume (BP MOD) 114 ml 21-61 LV Systolic Volume Index (BP MOD) 53 ml/m2 11-31 LV EF (BP MOD) 52 % 52-72 LV Diastolic Length (4C) 10.1 cm LV Systolic Length (4C) 9.3 cm LV Stroke Volume (4C MOD) 136 ml Atria Name Value Normal LA Dimensions LA Dimension (MM) 4.2 cm 3.0-4.0 LA Volume (4C A-L) 90 ml RA Dimensions RA Systolic Major Jackson Length (4C) 7.2 cm 2.1-2.7 RA Area (4C) 27.2 cm2 <=18.0 Report Signatures
--- NOTE | ~2024-08-21 | CT_ITS ---
EXAMINATION: CTA chest DATE: 08/21/2024 09:30 INDICATION: Aortic valve disease TECHNIQUE: Computed tomographic angiography (CTA) of the chest was performed with 100 mL Omnipaque-35 0 intravenous contrast. Volume-rendered 3D-reconstructions of the aorta and large arteries were const ructed by the technologist on a separate workstation. Dose Ruddy The dose-length product was 441.53 mGy-cm. COMPARISON: Chest CT dated 08/23/2023 FINDINGS: Moderate cardiomegaly with left ventricular and biatrial enlargement. Atherosclerotic coronary artery calcifications. No pericardial effusion. Median sternotomy and aortic valve repair. The valve plane at the site of the valve repair measures 2.5 cm diameter. 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 This tapers to 3.5 x 3.8 cm at the sinotubular junction. Ascending aorta measures up to 3.8 x 3.5 cm tapering tor 3.4 x 3.0 cm at the apex of the arch and remaining normal in caliber throug hout the more distal descending thoracic aorta. Groundglass opacities in the bilateral lower lobes, m ore prominent on the left where there is associated volume loss and favor atelectasis over pulmonary edema or pneumonia. No pleural effusion. Calcified right hilar lymph nodes consistent with old granul omatous disease. No pathologically enlarged thoracic lymphadenopathy. Chronic 1.3 cm left adrenal mas s without significant interval change dating back to 08/06/18 consistent with an adenoma. Moderate thor acic spondylosis. IMPRESSION: 1. 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 2. Groundglass opacities in bilateral lower lobes and favor atelectasis over mild pulmonary edema or pneumonia. 3. Cardiomegaly. Reviewed, dictated and finalized at location A. IMPRESSION: 1. 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 2. Groundglass opacities in bilateral lower lobes and favor atelectasis over mi ld pulmonary edema or pneumonia. 3. Cardiomegaly.
--- OUTSIDE RECORDS SUMMARY | 2024-08-21 08:39 | XMS_ITS | Continuity of Care Document ---
Author Organization [facility] Address [address] [facility] [place] [place] [address] Phone Care Team Providers Care Automatic Chief Name Role Phone Luciana Powell DO Unavailable Unavailable Allergies, Adverse Reactions, Alerts Substance Reaction Status Criticality Penicillins RashRash Active No Information ERYTHROMYCIN LACTOBIONATE RashRash Active No Information Medications Medication Instructions Dosage Effective Dates (start - stop) Status Comments Farxiga 10 mg tablet TAKE 1 TABLET BY MOUTH EVERY DAY IN THE MORNING - Active Accu-Chek Fastclix Lancet Drum USE ONE LANCET WITH EACH BLOOD SUGAR CHECK 2 TIMES DAILY AND NEEDED DX: E11.9 - Active METFORMIN HCL 1,000 MG TABLET TAKE 1 TABLET BY MOUTH TWICE A DAY WITH BREAKFAST AND DINNER - Active ATENOLOL 25 MG TABLET TAKE 1 TABLET BY MOUTH EVERY DAY 25 MG - Active LOSARTAN POTASSIUM 50 MG TAB TAKE 1 TABLET BY MOUTH EVERY DAY - Active ATORVASTATIN 20 MG TABLET TAKE 1 TABLET BY MOUTH EVERY DAY - Active ACCU-CHEK GUIDE TEST STRIP USE ONE STRIP WITH EACH BLOOD SUGAR CHECK 2 TIMES A DAY - Active MEDICATION MISCELL MISCELL Nervix 2 capsules po qd - Active MEDICATION MISCELL MISCELL Sugar Defender 2 droppers full daily - Active Vitamin B-12 500 mcg tablet take 1 tablet daily (OTC) - Active Bromfed DM 2 mg-30 mg-10 mg/5 mL oral syrup take 10 milliliter by oral route every 4 hours as needed 10.00 milliliter - No Longer Active FARXIGA 10 MG TABLET TAKE 1 TABLET BY MOUTH EVERY DAY IN THE MORNING - No Longer Active ACCU-CHEK FASTCLIX LANCET DRUM USE ONE LANCET WITH EACH BLOOD SUGAR CHECK 2 TIMES DAILY AND NEEDED DX: E11.9 - No Longer Active Procedures Procedure Date GLYCATED HEMOGLOBIN TEST OFFICE/OUTPATIENT VISIT, EST Complex e/m visit add on IMMUNIZATION ADMIN FLU VACCINE NO PRESERV 3 & > GLYCATED HEMOGLOBIN TEST OFFICE/OUTPATIENT VISIT, EST GLYCATED HEMOGLOBIN TEST OFFICE/OUTPATIENT VISIT, EST Complex e/m visit add on OFFICE/OUTPATIENT VISIT, EST OFFICE/OUTPATIENT VISIT, EST IMMUNIZATION ADMIN FLU VAC NO PRSV 4 COLIN 3 YRS+ GLYCATED HEMOGLOBIN TEST OFFICE/OUTPATIENT VISIT, EST GLYCATED HEMOGLOBIN TEST OFFICE/OUTPATIENT VISIT, EST OFFICE/OUTPATIENT VISIT, EST GLYCATED HEMOGLOBIN TEST OFFICE/OUTPATIENT VISIT, EST IMMUNIZATION ADMIN FLU VAC NO PRSV 4 COLIN 3 YRS+ OFFICE/OUTPATIENT VISIT, EST GLYCATED HEMOGLOBIN TEST GLYCATED HEMOGLOBIN TEST OFFICE/OUTPATIENT VISIT, EST IMMUNIZATION ADMIN FLU VAC NO PRSV 4 COLIN 3 YRS+ OFFICE/OUTPATIENT VISIT, EST PREV VISIT, EST, AGE 40-64 OFFICE/OUTPATIENT VISIT, EST GLYCATED HEMOGLOBIN TEST OFFICE/OUTPATIENT VISIT, EST GLYCATED HEMOGLOBIN TEST IMMUNIZATION ADMIN FLU VAC NO PRSV 4 COLIN 3 YRS+ OFFICE/OUTPATIENT VISIT, EST GLYCATED HEMOGLOBIN TEST OFFICE/OUTPATIENT VISIT, EST OFFICE/OUTPATIENT VISIT, EST GLYCATED HEMOGLOBIN TEST IMMUNIZATION ADMIN FLU VAC NO PRSV 4 COLIN 3 YRS+ GLYCATED HEMOGLOBIN TEST OFFICE/OUTPATIENT VISIT, EST LESION REMOVE COLONOSCOPY OFFICE/OUTPATIENT VISIT, EST GLYCATED HEMOGLOBIN TEST OFFICE/OUTPATIENT VISIT, EST IMMUNIZATION ADMIN FLU VAC NO PRSV 4 COLIN 3 YRS+ GLYCATED HEMOGLOBIN TEST OFFICE/OUTPATIENT VISIT, EST OFFICE/OUTPATIENT VISIT, EST OFFICE/OUTPATIENT VISIT, EST IMMUNIZATION ADMIN FLU VAC NO PRSV 4 COLIN 3 YRS+ OFFICE/OUTPATIENT VISIT, EST OFFICE/OUTPATIENT VISIT, EST GLYCATED HEMOGLOBIN TEST OFFICE/OUTPATIENT VISIT, EST GLYCATED HEMOGLOBIN TEST OFFICE/OUTPATIENT VISIT, EST OFFICE/OUTPATIENT VISIT, EST OFFICE/OUTPATIENT VISIT, EST STREP A ASSAY W/OPTIC METHYLPRENDISONE UP TO 40 MG OFFICE/OUTPATIENT VISIT, EST THER/PROPH/DIAG INJ, SC/IM METHYLPRENDISONE UP TO 80 MG THER/PROPH/DIAG INJ, SC/IM OFFICE/OUTPATIENT VISIT, EST OFFICE/OUTPATIENT VISIT, EST PFT Without Bronchodilator METHYLPRENDISONE UP TO 80 MG THER/PROPH/DIAG INJ, SC/IM INFLUENZA ASSAY W/OPTIC INFLUENZA ASSAY W/OPTIC OFFICE/OUTPATIENT VISIT, EST GLYCATED HEMOGLOBIN TEST Results Test Name Date and Time Measure Units Reference Range Abnormal Flag Status Commen ts Panel Description: Hemoglobin A1c/Hemoglobin.tot al in Blood Final Hgb A1C % 08:21:00 6.3 Final Advance Directives Directive Yes / No Effective Date File Name No Information Encounters Encounter Description Practice Location Reason(s) For Visit Diagnoses Date Provider Providers Copied on Encounter OFFICE/OUTPA TIENT VISIT, EST [facility], [address] [place] [address] [address], [place], [place], [address] , [place] tel:[phone] [facility] chronic conditions (chief complaint) Type 2 diabetes mellitus without complicationsEss ential hypertensionMixe d hyperlipidemiaAc quileute URI 5 Sherry DURAN. [address], [address], [place], [place], [address], [place]. tel:[phone] Referring Provider: Luciana Amin, [address], [place], [address] . tel:[phone] [facility], [address] [place] [address] [address], [place], [place], [address] , [place] tel:[phone] [facility] No Information 5 Sherry DURAN. [address], [address], [place], [place], [address], [place]. tel:[phone] [place] [address] [facility], [address] [place] [address] [address], [place], [address] , [place] tel:[phone] [facility] No Information 5 Sherry LOVE.. [address], [address], [place], [place], [address], [place]. tel:[phone] [place] [address] [facility], [address] [place] [address] [address], [place], [address] , [place] tel:[phone] [facility] No Information 5 Sherry DURAN. [address], [address], [place], [address], [place]. tel:[phone] [place] [address], [address] [place] [address] Road [address], [place], [place], [address] , [place] tel: [phone] [facility] No Information 5 Powell DO E.. [address], [address], [place], [place], [address], [place]. tel:[phone] [place] [address], [address] [place] [address] [address], [place], [place], [address] , [place] tel: [phone] [facility] No Information 4 Powell DO E.. [address], [address], [place], [place], [address], [place]. tel:[phone] OFFICE/OUTPA TIENT VISIT, [facility], [address] [place] [address] [address], [place], [place], [address] , [place] tel: [phone] [facility] chronic conditions (chief complaint) Type 2 diabetes mellitus without complicationsEss ential hypertensionMixe d hyperlipidemiaPa in in right shoulderPain in left shoulder Jan- 4 Powell DO E.. [address], [address], [place], [place], [address], [place]. tel:[phone] Referring Provider: Luciana Amin, [address], [place], [address] . tel:[phone] OFFICE/OUTPA TIENT VISIT, [facility], [address] [place] [address] [address], [place], [address] , [place] tel: [phone] [facility] chronic conditions (chief complaint) Type 2 diabetes mellitus with hyperglycemia, without long-term current use of insulinMixed hyperlipidemia 4 Powell DO E.. [address], [address], [place], [place], [address], [place]. tel:[phone] Referring Provider: Simon [address], [place], [address] . tel:[phone] [facility], [address] [place] [address] [address], [place], [place], [address] , [place] tel:[phone] [facility] No Information 4 Sherry DURAN. [address], [address], [place], [address], [place]. tel:[phone] OFFICE/OUTPA TIENT VISIT, [facility], [address] [place] [address] [address], [place], [place], [address] , [place] tel:[phone] [facility] cough (chief complaint) Cough, persistent 3 Enrrique Mckoy. [address], [place], [address], [place]. tel:[phone] Referring Provider: Leelee Rizzo, [address] [place], [address] . tel:[phone] OFFICE/OUTPA TIENT VISIT, [facility], [address] [place] [address] [address], [place], [place], [address] , [place] [phone] [facility] Cough (chief complaint) BronchitisLeft otitis media, unspecified otitis media type 3 Sherry DURAN. [address], [address], [place], [place], [address], [place]. tel:[phone] Referring Provider: Simon [address], [place], [address] . tel:[phone] OFFICE/OUTPA TIENT VISIT, [facility], [address] [place] [address] [address], [place], [address] , [place] tel:[phone] [facility] chronic conditions (chief complaint) Essential hypertensionType 2 diabetes mellitus without complication, without long-term current use of insulinMixed hyperlipidemia 3 Sherry DURAN. [address], [address], [place], [address], [place]. tel:[phone] Referring Provider: Simon [address], [place], [address] . tel:[phone] OFFICE/OUTPA TIENT VISIT, [facility], [address] [place] [address] [address], [place], [place], [address] , tel:[phone] [facility] chronic conditions (chief complaint) Essential hypertensionType 2 diabetes mellitus without complication, without long-term current use of insulinMixed hyperlipidemiaB1 2 deficiency 3 Sherry MADDOX ENeeta. [address], [address], [place], [address], [place]. tel:[phone] Referring Provider: [address], [place], [address] . tel:[phone] OFFICE/OUTPA TIENT VISIT, [facility], [address] [place] [address] [address], [place], [place], [address] , tel:[phone] [facility] Urgent Care f/u (chief complaint) Rectal abscess 3 Sherry MADDOX ENeeta. [address], [address], [place], [address], [place]. tel:[phone] Referring Provider: [address], [place], [address] . tel:[phone] OFFICE/OUTPA TIENT VISIT, [facility], [address] [place] [address] [address], [place], [place], [address] , [place] tel:[phone] [facility] chronic conditions (chief complaint) Type 2 diabetes mellitus without complicationsVit velazquez B 12 deficiencyScreen ing for prostate cancerEssential hypertensionPure hypercholesterol emia 2 Sherry DURAN. [address], [address], [place], [place], [address], [place]. tel:[phone] Referring Provider: [address], [place], [address] . tel:[phone] OFFICE/OUTPA TIENT VISIT, [facility], [address] [place] [address] [address], [place], [place], [address] , [place] tel:[phone] [facility] chronic conditions (chief complaint) Essential hypertensionType 2 diabetes mellitus without complicationsHyp ercholesterolemi a 2 Sherry DURAN. [address], [address], [place], [place], [address], [place]. tel:[phone] Referring Provider: Luciana Amin, [address], [place], [address] . tel:[phone] OFFICE/OUTPA TIENT VISIT, [facility], [address] [place] [address] [address], [place], [address] , [place] [phone] [facility] chronic conditions (chief complaint) Essential hypertensionType 2 diabetes mellitus with other specified complication, without long-term current use of insulinHyperchol esterolemia 1 Sherry DURAN. [address], [address], [place], [address], [place]. tel:[phone] Referring Provider: Luciana Amin, [address], [place], [address] . tel:[phone] OFFICE/OUTPA TIENT VISIT, [facility], [address] [place] [address] [address], [place], [address] , [place] [phone] [facility] cough (chief complaint)Hy pertension (chief complaint) COVID-19CoughEss ential hypertension 1 Sherry DURAN. [address], [address], [place], [address], [place]. tel:[phone] Referring Provider: [address], [place], [address] . tel:[phone] PREV VISIT, [facility], AGE 40-64 [facility], [address], [place], [place], [address] , [place] [phone] [facility] blood pressure check (chief complaint)Ad ult wellness (chief complaint) Encounter for wellness examination in adultEssential hypertension 1 Sherry DURAN. [address], [address], [place], [place], [address], [place]. tel:[phone] Referring Provider: Luciana Amin, [address], [place], [address] . tel:[phone] OFFICE/OUTPA TIENT VISIT, [facility], [address] [place] [address] [address], [place], [place], [address] , [place] tel:[phone] [facility] blood pressure (chief complaint) Essential hypertension 1 Sherry DURAN. [address], [address], [place], [place], [address], [place]. tel:[phone] Referring Provider: Luciana Amin, [address], [place], [address] . tel:[phone] OFFICE/OUTPA TIENT VISIT, [facility], [address] [place] [address] [address], [place], [place], [address] , [place] tel:[phone] [facility] [place] [facility] DM2 (chief complaint) Vitamin B 12 deficiencyHyperc holesterolemiaTy pe 2 diabetes mellitus with other specified complication, without long-term current use of insulin 1 Sherry DURAN. [address], [address], [place], [place], [address], [place]. tel:[phone] Referring Provider: Luciana Amin, [address], [place], [address] . tel:[phone] OFFICE/OUTPA TIENT VISIT, [facility], [address] [place] [address] [address], [place], [place], [address] , [place] tel:[phone] [facility] Follow up (chief complaint)Fl u Vaccine (chief complaint) Type 2 diabetes mellitus without complications 0 Sherry DURAN. [address], [address], [place], [place], [address], [place]. tel:[phone] Referring Provider: Luciana Amin, [address] [place] [address] [address], [place], [address] . tel:[phone] OFFICE/OUTPA TIENT VISIT, [facility], [address] [place] [address] [address], [place], [address] , [place] tel:[phone] [facility] Est Care with Dr. Powell. (chief complaint)Me d Refill (chief complaint)di abetes (chief complaint)ch preeti A1C (chief complaint) Type 2 diabetes mellitus without complicationsHyp ercholesterolemi aVitamin B 12 deficiencyScreen ing for cardiovascular conditionScreeni ng for cholesterol levelScreening for prostate cancerEncounter to establish care 0 Sherry DURAN. [address] [facility], [address], [place], [place], [address], [place]. tel:[phone] Referring Provider: Luciana Amin, [address] [place] [address] [address], [place], [address] . tel:[phone] OFFICE/OUTPA TIENT VISIT, [facility], [address] [place] [address] [address], [place], [address] , [place] [phone] [facility] Cough (chief complaint) Bronchitis with bronchospasmHype rcholesterolemia 0 Hope Bañuelos. [address] [place] [address], [address], [place], [address], [place]. tel:[phone] Referring Provider: Sarmad Vázquez, [address] [place] [address] [address], [place], [address] . tel:[phone] [facility], [address] [place] [address] [address], [place], [place], [address] , tel:[phone] [facility] chronic conditions (chief complaint) Type 2 diabetes mellitus without complicationsNee ds flu shotHypercholest erolemia Mar- 3201 9 Hope Bañuelos. [address] [place] [address], [address], [place], [address], [place]. tel:[phone] Referring Provider: Sarmad Vázquez, [address] [place] [address] [address], [place], [address] . tel:[phone] OFFICE/OUTPA TIENT VISIT, [facility], [address] [place] [address] [address], [place], [address] , [place] tel:[phone] [facility] chronic conditions (chief complaint) Type 2 diabetes mellitus without complicationsHyp ercholesterolemi aTubular adenoma of colonElevated blood pressure reading 9 Hope Bañuelos. [address] [place] [address], [address], [place], [place], [address], [place]. [phone] Referring Provider: Sarmad Vázquez, [address] [place] [address] [address], [place], [address] . tel:[phone] [employer], [address] [place] [address] [address], [place], [place], [address] , [place] tel:[phone] [facility] OP No Information 9 Madelyn Castro. [address] [facility] [address], [place], [place], [address], [place]. tel:[phone] Referring Provider: Matthew Davies, [address] [facility] [address], [place], [address] . tel:[phone] OFFICE/OUTPA TIENT VISIT, [facility], [address] [place] [address] [address], [place], [address] , [place] tel:[phone] [facility] cough (chief complaint) Cough 9 Ajdanielle HARKINSDARINEL Ortiz. [address], [place], [address], [place]. tel:[phone] Referring Provider: Diana GONZALEZ, [address] [place], [address] . tel:[phone] OFFICE/OUTPA TIENT VISIT, [facility], [address] [place] [address] [address], [place], [address] , [place] tel:[phone] [facility] chronic conditions (chief complaint) Type 2 diabetes mellitus without complicationsHyp ercholesterolemi aVitamin B 12 [facility] 8 Hope Bañuelos. [address] [place] [address], [address], [place], [address], [place]. tel:[phone] Referring Provider: Sarmad Vázquez, [address] [place] [address] [address], [place], [address] . tel:[phone] [facility], [address] [place] [address] [address], [place], [address] , [place] tel:[phone] [facility] flu shot (chief complaint) No Information 8 Hope Bañuelos. [address] [place] [address], [address], [place], [address], [place]. tel:[phone] Referring Provider: Sarmad Vázquez, [address] [place] [address] [address], [place], [address] . tel:[phone] OFFICE/OUTPA TIENT VISIT, [facility], [address] [place] [address] [address], [place], [place], [address] , [place] tel:[phone] [facility] chronic conditions (chief complaint) Type 2 diabetes mellitus without complicationsHyp ercholesterolemi a 8 Hope Bañuelos. [address] [place] [address], [address], [place], [address], [place]. tel:[phone] Referring Provider: Sarmad Vázquez, [address] [place] [address] [address], [place], [address] . tel:[phone] OFFICE/OUTPA TIENT VISIT, [facility], [address] [place] [address] [address], [place], [address] , [place] tel:[phone] [facility] chronic conditions (chief complaint) Type 2 diabetes mellitus without complicationsHyp ercholesterolemi aParesthesia of foot, bilateral Fe 8 Hope Bañuelos. [address] [place] [address], [address], [place], [address], [place]. tel:[phone] Referring Provider: Sarmad Vázquez, [address] [place] [address] [address], [place], [address] . tel:[phone] OFFICE/OUTPA TIENT VISIT, [facility], [address] [place] [address] [address], [place], [address] , [place] tel:[phone] [facility] Numbness (chief complaint) Paresthesia of foot, bilateralHyperch olesterolemiaTyp e 2 diabetes mellitus without complications 0-201 8 Hpoe Bañuelos. [address] [place] [address], [address], [place], [address], [place]. tel:[phone] Referring Provider: Sarmad Vázquez, [address] [place] [address] A, [place], [address] . tel:[phone] OFFICE/OUTPA TIENT VISIT, [facility], [address] [place] [address] [address], [place], [address] , [place] tel:[phone] [facility] chronic conditions (chief complaint) Type 2 diabetes mellitus without complicationsNee ds flu shotHypercholest erolemiaElevated blood pressure reading 201 7 Hope Bañuelos. [address] [place] [address] A, [place], [address], [place]. tel:[phone] Referring Provider: Sarmad Vázquez, [address] [place] [address] [address], [place], [address] . tel:[phone] OFFICE/OUTPA TIENT VISIT, [facility], [address] [place] [address] [address], [place], [address] , [place] tel:[phone] [facility] diabetes (chief complaint) Type 2 diabetes mellitus with hyperglycemia, without long-term current use of insulinHyperchol esterolemiaEleva twila blood pressure reading 7 Hope Bañuelos. [address] [place] [address], [address], [place], [address], [place]. tel:[phone] Referring Provider: Sarmad Vázquez, [address] [place] [address] [address], [place], [address] . tel:[phone] OFFICE/OUTPA TIENT VISIT, [facility], [address] [facility], [place], [address] , [place] tel:[phone] [facility] [place] [facility] Re-est PCP (chief complaint)di abetes (chief complaint) Type 2 diabetes mellitus with hyperglycemia, without long-term current use of insulinElevated blood pressure readingHyperchol esterolemia [address] [facility], [address], [place], [place], [address], [place]. tel:[phone] Referring Provider: Sarmad Vázquez, [address] [place] [address] [address], [place], [address] . tel:[phone] OFFICE/OUTPA TIENT VISIT, [facility], [address], [place], [address] , [place] [phone] [facility] hemorrhoids (chief complaint) Thrombosed hemorrhoids 7 No Information [employer] [facility], [address] [place] [address] [address], [place], [address] , [place] tel:[phone] [facility] Unspecified hearing loss, unspecified ear [address] [facility], [address], [place], [place], [address], [place]. tel:[phone] OFFICE/OUTPA TIENT VISIT, [facility], [address] [place] [address] [address], [place], [address] , [place] tel:[phone] [facility] cc ear plugged (chief complaint) Hearing loss of left ear, unspecified hearing loss type 7 No Information OFFICE/OUTPA TIENT VISIT, [facility], [address] [place] [address] [address], [place], [address] , [place] tel:[phone] [facility] Ear discomfort (chief complaint) Acute diffuse otitis externa of left ear 6 Radha Hill. [address], [place], [place], [address], [place]. tel:[phone] Referring Provider: Liz Garcia CNP, [address] [place], [address] . tel:[phone] OFFICE/OUTPA TIENT VISIT, [facility] [employer] [facility], [address], [place], [place], [address] , [place] tel:[phone] [facility] earache (chief complaint) Acute right otitis mediaAcute pharyngitis due to other specified organisms 6 Radha Hill. [address], [place], [place], [address], [place]. tel:[phone] Referring Provider: Liz Garcia CNP, [address] [place], [address] . tel:[phone] OFFICE/OUTPA TIENT VISIT, [facility], [address] [place] [address] [address], [place], [place], [address] , [place] tel:[phone] [facility] cough (chief complaint) Bronchitis, Acute 4 Hope Bañuelos. [address] [place] [address], [address], [place], [address], [place]. tel:[phone] Referring Provider: Sarmad Vázquez, [address] [place] [address] [address], [place], [address] . tel:[phone] [employer] [facility], [address] [place] [address] [address], [place], [place], [address] , [place] tel:[phone] [facility] Sleep ApneaHypercholes terolemiaOTHER ABNORMAL GLUCOSE 4 Sidiq DO Genoveva. [address] [place] [address] [address], [place], [address], [place]. tel:[phone] OFFICE/OUTPA TIENT VISIT, [facility] [employer] [facility], [address] [place] [address] [address], [place], [place], [address] , [place] tel:[phone] [id number] [facility] No Information 3 No Information OFFICE/OUTPA TIENT VISIT, [facility] [employer] Organization formerly [facility], [address] [place] [address] [address], [place], [place], [id number] , tel:[phone] [facility] No Information 2 No Information Family History Family Member Type Diagnosis Age At Onset Father Problem (finding) coronary arterioscleros is Mother Problem (finding) malignant neop lasm of breast in first degree relative Immunizations Vaccine Date Status Comments Influenza, seasonal, injectable administered Source: New Immuniza tion Record Influenza, injectable, quadrivalent, preservative free, 0.5 mL dosage, Fluarix\\Fluzone\\Flulaval Quad administered Source: New Immuniza tion Record Influenza, injectable, quadrivalent, preservative free, 0.5 mL dosage, Fluarix\\Fluzone\\Flulaval Quad administered Source: New Immuniza tion Record Influenza, injectable, quadrivalent, preservative free, 0.5 mL dosage, Fluarix\\Fluzone\\Flulaval Quad administered Source: New Immuniza tion Record SARS-COV-2 (COVID-19) vaccin e, vector non-replicating, recombinant spike protein-[id number], preservative free, 0.5 mL ([employer]) administered Source: Other Pro vider Influenza, injectable, quadrivalent, preservative free, 3 yrs or older administered Note: Pt tolerated the injection well. Pt alerted about the side effects of the vaccine and alerted to go to ED if gets hives. SOB, chest pain or any other severe reactions. Pt voices understanding. VIS given. ; Source: New Immunization Record Flu Vaccine [id number] administered Source : New Immunization Record Influenza, injectable, quadrivalent, preservative free, split virus, 6 months or older, Fluarix Quad administered Source: N ew Immunization Record Influenza, injectable, quadrivalent, preservative free, 3 yrs or older administered Note: Screening syed cklist filled out by pt. CDC sheet given to pt. Tolerated without problems. ; Source: New Immunization Record Payers Payer name Insurance type Covered green party ID Authoriza tion(s) [facility] CI [id number] [facility] CI [id number] [facility] CI [id number] [facility] CI [id number] [facility] CI [id number] [facility] CI [id number] [facility] CI [id number] Bud CI [id number] Bud CI [id number] Bud CI [id number] Social History Type Description Quantity Date Captured Comments Alcohol Use Details No Caffeine Use Details coffee 2 cups per day Tobacco Use Status Current non-smoker Smoking Status Never smoker Non-Smoking Tobacco Use Details : No Details Available : No Details Available Sex Male Vital Signs Date / Time: Height Weight BMI Pulse Rate Blood Pressure Temperature Respiratory Rate Body Surface Area Head Circumference Head Circ. Percentile Wt./[place]. Percentile BMI percentile Pulse Ox Inhaled Ox 8:07 AM 67.00 in 75.750 kg (167.00 lbs) 26.1 6 kg/m eter (2) 80 /min 124/76 mm[Hg] 98.60 F 96 % Chief Complaint And Reason For Visit From encounter dated '08/02/2024 08:00'. chronic conditions (chief complaint) Reason For Referral Reason For Referral No Information Plan Of Treatment Date Type Action Status Goal Diabetes educato r. Due on due Goal Hemoglobin A1C. Due on due Goal Dilated eye exam . Due on due Goal Pneumococcal vac cine. Due on due Goal Urine microalbum in. Due on due Goal Dental exam. Due on due Goal BMP. Due on due Goal Diabetes screeni ng. Due on due Goal ECG. Due on due Goal Depression scree matt. Due on due Goal Monofilament. Due on 2024 due Goal GFR. Due on due Goal Microalb/Creat R atio, Randm Ur. Due on due Goal ASCVD 10 year ri sk. Due on due Goal Foot exam. Due on due Goal EKG. Due on due Goal Influenza vaccin e. Due on due Goal Urinalysis. Due on due Goal Colonoscopy. Due on 029 due Goal IFOB. Due on due Goal Zoster vaccine. Due on due Goal Tobacco screenin g. Due on due Goal Td vaccine. Due on due Goal Unhealthy drug u se screening. Due on due Goal Hepatitis C scre ening. Due on due Goal Zoster vaccine ( 1st). Due on due Goal URINALYSIS NONAU TO W/O SCOPE. Due on due Goal Glucose. Due on due Goal DEXA Scan. Due on due Goal PSA Screening. Due on due Goal Dilated eye exam . Due on due Goal Diabetes educato r. Due on due Goal IFOB. Due on due Goal Foot exam. Due on due Goal GFR. Due on due Goal Microalb/Creat R atio, Randm Ur. Due on due Goal Dental exam. Due on 025 due Goal Monofilament. Due on 2024 due Goal Hemoglobin A1C. Due on due Goal ASCVD 10 year ri sk. Due on due Goal Urine microalbum in. Due on due Goal URINALYSIS NONAU TO W/O SCOPE. Due on due Goal DEXA Scan. Due on due Goal PSA Screening. Due on due Goal Td vaccine. Due on 25 due Goal Zoster vaccine. Due on due Goal Glucose. Due on due Goal Colonoscopy. Due on 029 due Goal Unhealthy drug u se screening. Due on due Goal ECG. Due on due Goal Influenza vaccin e. Due on due Goal Depression scree matt. Due on due Goal Pneumococcal vac cine. Due on due [id number]|2024-08-21 08:39:00|2024-08-21 08:39:00|XMS_ITS|BKG DAJODY|External Medical Summaries|[id number]|" Referral Summary Created on: August 21, 2024 Mauri Caldwell : 1960 Sex: Male Author Organization [facility] Address [address] [address] Care Team Providers Care Automatic Chief Name Role Phone Rigoberto Lucas MD Primary Care Provider [phone] Encounters Date Type Department Care Team Description 07/12/2024 Orders Only [facility] Surgery [address] [place] [address] Garrison Baker MD Aortic valve disease (Primary Dx) from Last 3 Months Allergies No known active allergies Medications warfarin (COUMADIN) 5 mg tablet take 1.5 tablets by oral route daily oexcept 2 tablets on Thur and Sat. or as directed by Dr Mejia 140 3 06/10/2012 Active furosemide (LASIX) 20 mg tablet Take one by mouth one time per day 0 0 10/17/2007 Active carvedilol (COREG) 3.125 mg tablet Take one by mouth two times per day 0 0 10/17/2007 Active potassium chloride ER (KLOR-CON M10) 10 mEq CR tablet Take one by mouth one time per day 0 0 10/17/2007 Active atorvastatin (LIPITOR) 10 mg tablet Take one by mouth one time per day at bedtime 0 0 10/17/2007 Active oxyCODONE-aceta minophen (PERCOCET) 5-325 mg per tablet Take as directed 0 0 10/17/2007 Active spironolactone (ALDACTONE) 25 mg tablet Take one by mouth one time per day 30 5 10/17/2007 Active warfarin (COUMADIN) 2 mg tablet Take as directed--8mg QD except 7mg MWF 45 5 08/01/2008 Active simvastatin (ZOCOR) 40 mg tablet take 1 tablet by oral route every day in the evening 30 1 06/06/2013 Active lisinopril (PRINIVIL,ZESTR IL) 20 mg tablet take 1 tablet by oral route every day 0 0 10/17/2007 Active Active Problems Problem Noted Date Diagnosed Date Aortic valve disease 04/12/2015 Shortness of breath 03/25/2011 Social History Tobacco Use Types Packs/Day Years Used Date Smoking Tobacco: Every Day Personal Safety Answer Date Recorded Getting School Help Needed Not on file Sex and Gender Information Value Date Recorded Sex Assigned at Not on file 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 Gender Identity Not on file Sexual Orientation Not on file Last Filed Vital Signs Vital Sign Reading Time Taken Comments Blood Pressure 150/74 08/31/2023 11:13 AM CDT Pulse 50 08/31/2023 11:13 AM CDT Temperature 36.7 C (98 F) 09/03/2020 12:34 PM CDT Respiratory Rate 14 08/31/2023 11:13 AM CDT Oxygen Saturation 95% 08/31/2023 11:13 AM CDT Inhaled Oxygen Concentration - - Weight 92.1 kg (203 lb) 08/31/2023 11:13 AM CDT Height 170.2 cm (5' 7 ) 08/31/2023 11:13 AM CDT Body Mass Index 31.79 08/31/2023 11:13 AM CDT Plan of Treatment Not on file Insurance [facility] Care Teams Automatic Chief Relationship Specialty Start Date End Date Rigoberto Lucas MD PCP - General 02/19/11 "
--- OUTSIDE RECORDS SUMMARY | 2024-08-21 08:39 | XMS_ITS | Clinical Summary ---
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 Gender Identity Not on file Sexual Orientation Not on file Plan of Treatment Health Maintenance Due Date Last Done Comments Colorectal Cancer Screening Colonoscopy (10 Years) 1960 Annual Physical 1964 Hepatitis C 09/05/1979 DTaP, Tdap and Td Vaccines ( 1 - Tdap) 1980 Pneumococcal Vaccine: 50+ Ye ars (1 of 1 - PCV) 09/05/2011 Zoster Vaccines (1 of 2) 09/05/2011 COVID-19 Vaccine ( - 2023-2 5 season) 2023 RSV Immunization or 60+ Years (1 - 1-dose 75+ series) 2036 Meningococcal B Vaccine Aged Out No l onger eligible based on patient's age to complete this topic Meningococcal Vaccine Aged Out No aamir gerda eligible based on patient's age to complete this topic RSV Immunizations Under 20 Months Aged Out No longer eligible based on patient's age to complete this topic Insurance [facility]
--- OUTSIDE RECORDS SUMMARY | 2024-08-21 08:39 | XMS_ITS | CONTINUITY OF CARE DOCUMENT ---
Author Name aroldo kendrick Address Unknown Organization [facility] Address [address] [place] [address] Phone [phone] Care Team Providers Care Finding Fastener Name Role Phone Pola Angulo MD Unavailable JOSE ANTONIO BROOKS MD Unavailable JOSE ANTONIO BROOKS MD Unavailable [phone] PROBLEMS Condition Status Date Provider Notes HYPERLIPIDEMIA active Pola Angulo MD HYPERTENSION active Pola Angulo MD CARDIOMYOPATHY, VALVULAR- EF 40-45% active Pola Angulo MD MECHANICAL AORTIC VALVE PROSTHESIS. active Pola Angulo MD Tobacco abuse active Pola Angulo MD ENCOUNTERS Date Type Provider Location Encounter Diagnosis - In-person encounter Office Visit Pola Angulo MD [facility] Tobacco abuse - In-person encounter Office Visit Pola Angulo MD [facility] HYPERLIPIDEMIAHYPE RTENSIONCARDIOMYOP ATHY, VALVULAR- EF 40-45%MECHANICAL AORTIC VALVE PROSTHESIS. VITAL SIGNS Date Observation Value Provider Body Mass Index (Ratio) 31.01 kg/m2 Mingo Angulo MD blood pressure, diastolic, left arm 78 mm [Hg] Pola Angulo MD blood pressure, systolic, left arm 110 mm [Hg] Pola Angulo MD blood pressure, diastolic, right arm 80 m m[Hg] Pola Angulo MD blood pressure, systolic, right arm 118 m m[Hg] Pola Angulo MD blood pressure, diastolic 80 mm[Hg] Alfie Angulo MD blood pressure, systolic 118 mm[Hg] Ilya Angulo MD oxygen saturation, oximetry 96 % Pola Angulo MD respiratory rate E&M 16 /min Gaurang Angulo MD pulse rate 60 /min Pola Angulo MD weight E&M 204 [lb_av] Pola Angulo MD height E&M 68 [in_i] Pola Angulo MD blood pressure, diastolic, left arm 78 mm [Hg] Pola Angulo MD blood pressure, systolic, left arm 146 mm [Hg] Pola Angulo MD blood pressure, diastolic, right arm 80 m m[Hg] Pola Angulo MD blood pressure, systolic, right arm 144 m m[Hg] Pola Angulo MD pulse rate 66 /min Pola Angulo MD weight E&M 205 [lb_av] Pola Angulo MD height E&M 67 [in_i] Pola Angulo MD oxygen saturation, oximetry 98 % Pola Angulo MD respiratory rate E&M 16 /min Gaurang Angulo MD ALLERGIES No Known Drug Allergies RESULTS Date Observation Value Provider Reference Range Interpretation Location coagulation managed by Russell Gant RN international normalized ratio (INR) 2.97 Russell Gant RN Normal prothrombin time (patient) 31.6 s Russell Gant RN international normalized ratio (INR) 3.9 Prachi Lucas RN Normal coagulation managed by Yuko Grider RN international normalized ratio (INR) 3.3 Yuko Grider RN Normal coagulation managed by Russell Gant RN international normalized ratio (INR) 3.23 Russell Gant RN Normal prothrombin time (patient) 36.6 s Russell Gant RN international normalized ratio (INR) 2.7 Prachi Koehler RN Normal prothrombin time (patient) 30.20 s Prachi Zakia RN international normalized ratio (INR) 2.67 Russell Gant RN Normal prothrombin time (patient) 29.9 s Russell Gant RN international normalized ratio (INR) 3.36 Prachi Zakia RN Normal prothrombin time (patient) 38.10 s Prachi Koehler RN international normalized ratio (INR) 3.23 Prachi Galindoerty RN Normal prothrombin time (patient) 36.5 s Prachi Zakia RN coagulation managed by Russell Gant RN international normalized ratio (INR) 2.27 Russell Gant RN Normal prothrombin time (patient) 25.10 s Russell Gant RN international normalized ratio (INR) 2.9 Mauri Araujo Normal prothrombin time (patient) 33.5 s Mauri Araujo coagulation managed by Russell Gant RN international normalized ratio (INR) 3.13 Russell Gant RN Normal prothrombin time (patient) 35.4 s Russell Gant RN international normalized ratio (INR) 2.9 Mauri Araujo Normal prothrombin time (patient) 32.7 s Mauri Araujo international normalized ratio (INR) 1.68 Prachi Lucas RN Normal prothrombin time (patient) 18.20 s Prachi Lucas RN international normalized ratio (INR) 3.4 Mauri Culervin Normal prothrombin time (patient) 38.8 s Mauri Araujo international normalized ratio (INR) 2.74 Prachi Lucas RN Normal prothrombin time (patient) 30.7 s Prachi Lucas RN international normalized ratio (INR) 2.62 Prachi Lucas RN Normal prothrombin time (patient) 28.1 s Prachi Lucas RN international normalized ratio (INR) 3.15 Prachi Lucas RN Normal prothrombin time (patient) 34.2 s Prachi Lucas RN international normalized ratio (INR) 2.7 Prachi Lucas RN Normal prothrombin time (patient) 29.0 s Prachi Lucas RN international normalized ratio (INR) 2.07 Prachi Lucas RN Normal prothrombin time (patient) 22.4 s Prachi Lucas RN coagulation managed by Deidra Will RN Deidra Will RN prothrombin time (patient) 29.3 s Arnegard Suman RN international normalized ratio (INR) 2.68 Deidra Will RN Normal international normalized ratio (INR) 3.7 Mauri Culiberk Normal prothrombin time (patient) 42.1 s Mauri Culiberk international normalized ratio (INR) 2.5 Mauri Romeok Normal prothrombin time (patient) 27.5 s Mauri Culiberk international normalized ratio (INR) 2.58 Prachi Lucas RN Normal prothrombin time (patient) 28.2 s Prachi Lucas RN international normalized ratio (INR) 2.3 Mauri Culiberk Normal international normalized ratio (INR) 3.22 Deya Braswell international normalized ratio (INR) 3.2 Mauri Culiberk Normal prothrombin time (patient) 35.5 s Mauri Culiberk international normalized ratio (INR) 3.4 Mauri Culiberk Normal prothrombin time (patient) 38.2 s Mauri Culiberk coagulation managed by Deidra Will RN international normalized ratio (INR) 2.62 Deidra Will RN Normal prothrombin time (patient) 28.6 s Arnegard Suman RN prothrombin time (patient) 26.10 s Prachi Lucas RN international normalized ratio (INR) 2.4 Prachi Lucas RN Normal prothrombin time (patient) 34.0 s Mauri Culiberk international normalized ratio (INR) 3.0 Mauri Romeonamrata Normal prothrombin time (patient) 32.5 s Prachi Lance PINO international normalized ratio (INR) 2.96 Prachi Lance PINO Normal coagulation managed by Prachi Palacio RN LashawnJanice Palacio RN prothrombin time (patient) 31.3 s Prachi Palacio RN international normalized ratio (INR) 2.8 Prachi Palacio RN Normal international normalized ratio (INR) 2.85 Nas Canela international normalized ratio (INR) 2.86 Nas Canela triglyceride, serum, fasting 154 mg/dL [place] HDL cholesterol, serum 33 mg/dL [place] cholesterol/HDL ratio, serum 4.1 [facility] lipoprotein, beta, serum, point, quantitative, calculated 72 mg/dL [facility] cholesterol, serum 136 mg/dL [facility] alanine aminotransferase (SGPT), serum 26 1/L [facility] Hilton aspartate aminotransferase (SGOT), serum 17 1/L [facility] creatinine, serum 0.92 mg/dL [facility] potassium, serum 4.2 mmol/L [facility] sodium, serum 140 mmol/L [facility] HISTORY OF MEDICATION USE Medication Status Instructions Dates Provider Indications Com ments COUMADIN 5 MG ORAL TABLET active 2 tabs ( 10 mg ) po on and Sat. 1 1/2 tabs ( 7.5 mg ) rest of days 5 Prachi Palacio RN LISINOPRIL 20 MG ORAL TABLET active po one tab daily 5 Pola Angulo MD SIMVASTATIN 40 MG ORAL TABLET active ONE TAB. DAILY 5 Pola Angulo MD SPIRONOLACTONE 25 MG ORAL TABLET active ONE TAB. DAILY 5 Pola Angulo MD CARVEDILOL 25 MG ORAL TABLET active one tab twice daily 5 Pola Angulo MD COUMADIN TABLET completed 10mg on and wednesday, 7.5mg on the rest of the days. 5 - 5 Prachi Palacio RN SOCIAL HISTORY Date Observation Value Provider social history E&M Ethnicity: Ca ucasian J ob Status: Employed full-time Smoking History: P atient currently smokes every day. P atient has been counseled to quit. Pola Angulo MD smoking/tobacco cess ation, patient education and counseling yes Pola Angulo MD smoking status Current every day smoker M johann Angulo MD social history reviewed E&M revi ewed - no changes required Pola Angulo MD smoking/tobacco cess ation, patient education and counseling yes Pola Angulo MD smoking status current every day smoker M johann Angulo MD social history E&M E thnicity: J ob Status: Employed full-time Pola Angulo MD social history reviewed E&M reviewed Pola Angulo MD MENTAL STATUS Date Observation Value Provider assessment of judgme nt and insight E&M Alert and oriented to time, place and person. Mood and affect are normal. Pola Angulo MD INSURANCE PROVIDERS Payer name Policy type / Coverage type [facility] ID [facility] [id number] TREATMENT PLAN Date Name Performer printed to rosalba:Strongly adv ised to quit smoking. Pola Angulo MD printed to rosalba: Blood pressure control is satisfactory. His updated medication list for this problem includes: Carvedilol 25 Mg Tabs (Carvedilol) ..... One tab twice daily Spironolactone 25 Mg Tabs (Spironolactone) ..... One tab. daily Lisinopril 20 Mg Tabs (Lisinopril) ..... Po one tab daily Orders: 9 9215 HIGH Complex ([id number]) Pola Angulo MD printed to rosalba: On simvastatin 40mg po daily. His updated medication list for this problem includes: Simvastatin 40 Mg Tabs (Simvastatin) ..... One tab. daily Orders: 9 9215 HIGH Complex ([id number]) Pola Angulo MD printed to rosalba: The last EF on the echocardiogram was 40-45%. He was well compensated and has no symptoms. H is updated medication list for this problem includes: Carvedilol 25 Mg Tabs (Carvedilol) ..... One tab twice daily Spironolactone 25 Mg Tabs (Spironolactone) ..... One tab. daily Lisinopril 20 Mg Tabs (Lisinopril) ..... Po one tab daily Coumadin 5 Mg Tabs (Warfarin sodium) ..... 2 tabs ( 10 mg ) po on th and sat. 1 1/2 tabs ( 7.5 mg ) rest of days Orders: 9 9215 HIGH Complex ([id number]) Pola Angulo MD printed to rosalba: Aortic valve function satisfactory. rders: 9 9215 HIGH Complex ([id number]) Orders: 9 9215 HIGH Complex ([id number]) Pola Angulo MD
--- OUTSIDE RECORDS SUMMARY | 2024-08-21 08:39 | XMS_ITS | Clinical Summary ---
Author Organization [facility] Address [address] [address] Care Team Providers Care Salvage Grinder Name Role Phone Rigoberto Lucas MD Primary Care Provider [phone] Allergies No known active allergies Medications warfarin [...] valve disease 04/12/2015 Shortness of breath 03/25/2011 Encounters Date Type Department Care Team Description 07/12/2024 Orders Only [facility] Surgery [address] [address] Garrison Baker MD Aortic valve disease (Primary Dx) from Last 3 Months Family History Medical History Relation Name Comments Coronary artery disease Mother Fami ly history of coronary artery disease - (Added by TW Conv) Relation Name Status Comments Mother Social History Tobacco Use Types Packs/Day Years Used Date Smoking Tobacco: Every Day Personal Safety Answer Date Recorded Getting School Help Needed Not on file Sex and Gender Information Value Date Recorded Sex Assigned at Not on file 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 Gender Identity Not on file Sexual Orientation Not on file Obstetrics History Last Filed Vital Signs Vital Sign Reading [...] 08/31/2023 11:13 AM CDT Plan of Treatment Health Maintenance Due Date Last Done Comments Colon Cancer Screening-Colonoscopy 1960 Depression Screening 1960 Hepatitis C Screening 1960 Prostate Cancer Screening-PSA 1960 DTaP/Tdap/Td Vaccine (1 - Tdap) 1972 Hepatitis B Screening 09/05/1979 Regular Well Visit/Exam 18-64 09/05/1979 Pneumococcal vaccine <65 (1 of 2 - PCV) 1980 Zoster Vaccine (1 of 2) 09/05/2011 Influenza Vaccine (Season Ended) 2024 Insurance [facility] CHO[facility] PL[facility] Care Teams Salvage Grinder Relationship Specialty Start Date End Date Rigoberto Lucas MD PCP - General 02/19/11
[2024-08-21 09:26] LABS: Estimated Glomerular Filt Rate 47
[2024-08-21] MEDS: PERFLUTREN LIPID MICROSPHERES 1.5 ML VIAL DILUTED TO 10 ML TOTAL VOLUME IV PUSH (10:25)
--- NOTE | 2024-08-21 12:29 | IVDEFINITY ---
Prior to administration of IV Definity the patient was educated on the risks and benefits of the imaging enhancing agent including potential adverse side effects. The patient verbalized understanding. Allergies were verified. No exclusion criteria were identified and at least one of the following inclusion criteria were met: 1) physician request, 2) patient technically difficult to image (per the [place] [employer]ocardi[employer] guidelines of two or more segments not discernable within the apical view), or 3) questionable left ventricular function.
== END 2024-08-21 08:33 | disposition home or self-care (01) ==
PROVIDERS: PCP Internal Medicine; Visit Provider Thoracic Surgery (Cardiothoracic Vascular Surgery)
DX: I35.9 Nonrheumatic aortic valve disorder, unspecified (principal); I51.7 Cardiomegaly
CPT/HCPCS: 71275; 93306; C8929; Q9957; Q9967